=== PATIENT | male | born 1970 | race Two or more races ===

== ENCOUNTER → 2020-02-03 09:54 | Outpatient (BNVA) | payer OTHER, SELFPAY | PROVIDERS: Visit Provider Internal Medicine ==

== ENCOUNTER 2021-02-25 10:15 | Outpatient (REF) | payer OTHER, SELFPAY ==
[2021-02-25 11:52] LABS: MANUAL DIFF FLAG NO
[2021-02-25 12:10] LABS: Basophils Percent Auto 0.5 % (0-2); Eosinophils Absolute Auto 0.1 X10*3/uL (0.0-0.4); Eosinophils Percent Auto 0.8 % (0-4); Hematocrit 43.4 % (42.0-52.0); Hemoglobin 14.2 g/dl (14.0-18.0); Imm Gran Abs Auto 0.01 X10*3/uL (0.00-0.03); Imm Gran Pct Auto 0.2 % (0.0-0.4); Lymphocytes Absolute Auto 2.6 X10*3/uL (1.2-4.9); Lymphocytes Percent Auto 39.7 % (20-40); Mean Corpuscular HGB Conc 32.7 g/dl (31.0-36.0); Mean Corpuscular Hemoglobin 31.7 pg (27.0-33.0); Mean Corpuscular Volume 96.9 fL (80.0-98.0); Mean Platelet Volume 9.9 fL (9.4-12.4); Monocytes Absolute Auto 0.5 X10*3/uL (0.1-1.2); Monocytes Percent Auto 6.8 % (2-11); Neutrophils Absolute Auto 3.43 x10*3/uL (2.0-8.3); Platelet Count 195 X10*3/uL (160-400); Red Blood Count 4.48 X10*6/uL (4.60-5.80); Red Cell Distribution Width 12.8 % (11.0-16.0); White Blood Count 6.6 X10*3/uL (4.8-10.8)
[2021-02-25 12:37] LABS: Alanine Aminotransferase 21 U/L (0-40); Albumin Level 4.3 g/dL (3.5-5.0); Alkaline Phosphatase 55 U/L (39-117); Anion Gap 12 (12-20); Aspartate Amino Transferase 21 U/L (5-37); Bilirubin Direct < 0.2 mg/dL (0.0-0.5); Bilirubin Total 0.3 mg/dL (0.0-1.0); Blood Urea Nitrogen 20 mg/dL (9-16); Calcium 9.1 mg/dL (8.4-10.2); Carbon Dioxide 28 mmol/L (22-29); Chloride 106 mmol/L (96-108); Estimated Glomerular Filt Rate > 60; Glucose Random 94 mg/dL (60-115); Potassium 4.2 mmol/L (3.3-5.1); Sodium 142 mmol/L (135-145); Total Protein 7.6 g/dL (6.5-8.0)
[2021-02-25 12:49] LABS: Microalbumin Urine < 5.0 mg/L
[2021-02-25 12:52] LABS: ~HepC Num1 0.11 S/CO (0.00-0.79); ~Hepatitis C Antibody Nonreactive (Nonreactive)
[2021-02-25 13:47] LABS: Syphilis Screen Nonreactive (Nonreactive)
[2021-02-26 14:16] LABS: Absolute CD3 Count 2173 cells/uL (840-3060); Absolute CD4 Count 1091 cells/uL (490-1740); Absolute CD8 Count 1207 cells/uL (180-1170); Absolute Lymphocytes 2695 cells/uL (850-3900); Percent CD3 Cells 81 % (57-85); Percent CD4 Cells 40 % (30-61); Percent CD8 Cells 45 % (12-42)
[2021-02-26 20:31] LABS: HIV RNA PCR Qn Copies <20 NOT DETECTED copies/mL (NOT DETECTED); HIV RNA PCR Qn Log Copies <1.30 NOT DETECTED (NOT DETECTED)
[2021-03-02 13:26] LABS: Vitamin D 25-OH, D2 <4 ng/mL; Vitamin D 25-OH, D3 23 ng/mL; Vitamin D 25-OH, Total 23 ng/mL (30-100)
== END 2021-02-25 10:16 | disposition home or self-care (01) ==
LOC: HO.LAB 10:15
PROVIDERS: Visit Provider Internal Medicine
DX: B20 Human immunodeficiency virus [HIV] disease (principal); R10.13 Epigastric pain; E55.9 Vitamin D deficiency, unspecified
CPT/HCPCS: 36415; 80048; 80076; 82043; 82306; 85025; 86359; 86360; 86780; 86803; 87536

== ENCOUNTER 2021-03-29 14:23 | Outpatient (REF) | payer OTHER, SELFPAY ==
--- NOTE | ~2021-03-29 | MM_ITS ---
EXAMINATION: BONE DENSITOMETRY CLINICAL INDICATION: Vitamin D deficiency, unspecified. COMPARISON: None (current study represents initial baseline exam). TECHNIQUE: Using a [employer] DXA System (software version: 13.1) manufactured by [employer], dual-energy x-ray absorptiometry was performed of the lumbar spine and left hip. The images are of good technical quality. Summary results are attached. FINDINGS: AP SPINE L1-L4: BMD 1.228 g/cm2, Z-score -0.5, T-score 0.1, normal. LEFT FEMUR, NECK: BMD 1.075 g/cm2, Z-score 0.2, T-score 0.0, normal. LEFT FEMUR, TOTAL: BMD 1.201 g/cm2, Z-score 0.6, T-score 0.7, normal. IDENTIFIED RISK FACTORS: Height loss. HISTORY OF FRACTURE: None listed. MEDICATIONS: None listed. MM/XR DEXA axial skeleton IMPRESSION: 1. DIAGNOSIS: Normal bone density based on the lowest T-score value of 0.0 in the femoral neck applying World Health Organization criteria. 2. 10-YEAR FRACTURE RISK PREDICTION, FRAX: Major osteoporotic fracture (clinical spine, forearm, hip or shoulder) 1.6%. Hip fracture 0.0%. 3. Treatment Recommendations: NOF guidelines recommend consideration for treatment in postmenopausal women and men age 50 and older presenting with the following: -A hip or vertebral (clinical or morphometric) fracture. -T-score less than or equal to -2.5 at the femoral neck or spine after appropriate evaluation to exclude secondary causes. -Low bone mass at the hip or spine and a 10-year fracture probability by FRAX of greater than or equal to 3% for hip fracture or greater than or equal to 20% for major osteoporotic fracture based on the [place] adapted WHO algorithm. 4. Other Recommendations: All treatment decisions require clinical judgment and consideration of individual patient factors, including patient preferences, comorbidities, previous drug use, risk factors not captured in the FRAX model (e.g. frailty, falls, vitamin D deficiency, increased bone turnover, interval significant decline in bone density) and possible under or overestimation of fracture risk by FRAX. FUTURE SCAN RECOMMENDATION: People with diagnosed cases of osteoporosis or at high risk for fracture should have regular bone mineral density tests. For patients eligible for Medicare, routine testing is allowed once every 2 years. The testing frequency can be increased to one year for patients who have rapidly progressing disease, those who are receiving or discontinuing medical therapy to restore bone mass, or have additional risk factors.
== END 2021-03-29 14:24 | disposition home or self-care (01) ==
LOC: HO.MAMMO 14:23
PROVIDERS: Visit Provider Internal Medicine
DX: Z13.820 Encounter for screening for osteoporosis (principal); E55.9 Vitamin D deficiency, unspecified
CPT/HCPCS: 77080

== ENCOUNTER 2022-02-17 13:38 | Outpatient (REF) | payer OTHER, SELFPAY ==
[2022-02-19 12:33] LABS: Absolute CD3 Count 2077 cells/uL (840-3060); Absolute CD4 Count 994 cells/uL (490-1740); Absolute CD8 Count 1177 cells/uL (180-1170); Absolute Lymphocytes 2543 cells/uL (850-3900); CD4 CD8 Ratio 0.84 (0.86-5.00); Percent CD3 Cells 82 % (57-85); Percent CD4 Cells 39 % (30-61); Percent CD8 Cells 46 % (12-42)
[2022-02-20 19:52] LABS: HIV RNA PCR Qn Copies NOT DETECTED copies/mL (NOT DETECTED); HIV RNA PCR Qn Log Copies NOT DETECTED (NOT DETECTED)
== END 2022-02-17 13:39 | disposition home or self-care (01) ==
LOC: HO.LAB 13:38
PROVIDERS: Visit Provider Internal Medicine
DX: B20 Human immunodeficiency virus [HIV] disease (principal)
CPT/HCPCS: 36415; 86359; 86360; 87536

== ENCOUNTER 2023-03-02 10:50 | Outpatient (REF) | payer OTHER, SELFPAY ==
[2023-03-02 11:07] LABS: MANUAL DIFF FLAG NO
[2023-03-02 11:40] LABS: Basophils Percent Auto 0.6 % (0-2); Eosinophils Absolute Auto 0.1 X10*3/uL (0.0-0.4); Eosinophils Percent Auto 1.3 % (0-4); Hematocrit 45.3 % (42.0-52.0); Hemoglobin 14.8 g/dl (14.0-18.0); Imm Gran Abs Auto 0.02 X10*3/uL (0.00-0.03); Imm Gran Pct Auto 0.3 % (0.0-0.4); Lymphocytes Absolute Auto 3.3 X10*3/uL (1.2-4.9); Mean Corpuscular HGB Conc 32.7 g/dl (31.0-36.0); Mean Corpuscular Hemoglobin 31.3 pg (27.0-33.0); Mean Corpuscular Volume 95.8 fL (80.0-98.0); Mean Platelet Volume 9.7 fL (9.4-12.4); Monocytes Absolute Auto 0.5 X10*3/uL (0.1-1.2); Monocytes Percent Auto 6.7 % (2-11); Neutrophils Absolute Auto 3.1 x10*3/uL (2.0-8.3); Neutrophils Percent Auto 44.1 % (45-73); Platelet Count 203 X10*3/uL (160-400); Red Blood Count 4.73 X10*6/uL (4.60-5.80); Red Cell Distribution Width 12.5 % (11.0-16.0)
[2023-03-02 12:35] LABS: Alanine Aminotransferase 20 U/L (0-40); Alkaline Phosphatase 54 U/L (39-117); Anion Gap 11 (12-20); Aspartate Amino Transferase 20 U/L (5-37); Bilirubin Direct 0.1 mg/dL (0.0-0.5); Bilirubin Total 0.4 mg/dL (0.0-1.0); Blood Urea Nitrogen 21 mg/dL (9-16); Calcium 9.7 mg/dL (8.4-10.2); Carbon Dioxide 28 mmol/L (22-29); Chloride 106 mmol/L (96-108); Estimated Glomerular Filt Rate > 60; Glucose Random 90 mg/dL (60-115); Potassium 3.8 mmol/L (3.3-5.1); Sodium 141 mmol/L (135-145); Total Protein 7.5 g/dL (6.5-8.0)
[2023-03-03 05:38] LABS: Syphilis Screen Nonreactive (Nonreactive)
[2023-03-03 05:42] LABS: ~HepC Num1 0.13 S/CO (0.00-0.79); ~Hepatitis C Antibody Nonreactive (Nonreactive)
[2023-03-03 16:04] LABS: HIV RNA PCR Qn Copies NOT DETECTED copies/mL (NOT DETECTED); HIV RNA PCR Qn Log Copies NOT DETECTED (NOT DETECTED)
[2023-03-04 10:03] LABS: Absolute CD3 Count 2591 cells/uL (840-3060); Absolute CD4 Count 1387 cells/uL (490-1740); Absolute CD8 Count 1308 cells/uL (180-1170); Absolute Lymphocytes 3186 cells/uL (850-3900); CD4 CD8 Ratio 1.06 (0.86-5.00); Percent CD3 Cells 81 % (57-85); Percent CD4 Cells 44 % (30-61); Percent CD8 Cells 41 % (12-42)
== END 2023-03-02 10:51 | disposition home or self-care (01) ==
LOC: HO.LAB 10:50
PROVIDERS: Visit Provider Internal Medicine
DX: B20 Human immunodeficiency virus [HIV] disease (principal)
CPT/HCPCS: 36415; 80048; 80076; 85025; 86359; 86360; 86780; 86803; 87536

== ENCOUNTER 2023-03-11 13:29 | Outpatient (AMB) | payer OTHER, SELFPAY ==
--- NOTE | 2023-03-11 13:33 | MHC.OFFVIS ---
Intake Vital Signs 03/11/23 13:38 Height 6 ft 1 in Weight 235 lb BMI 31.0 Pulse 92 Pulse Source Pulse Oximeter Pulse Oximetry (%) 97 Intake Visit Reasons: HIV 1 year follow up labs Allergies No Known Allergies Allergy (Verified 03/11/23 13:41) HPI HIV 1 year follow up labs HPI Details He has CD4 count of 1387 and viral load undetectable on 03/02. He has now PCP at [facility]. He has no concerns. [facility] Medical History Hypovitaminosis D Epigastric pain HIV (human immunodeficiency virus infection) Family History Mother Diabetes Maternal Grandmother Diabetes Alcohol intake: current Patient Tobacco Use Status: Never used Tobacco Review of Systems Const All systems reviewed & are unremarkable except as noted in HPI and below Physical Exam Vital Signs: Last Vital Signs Pulse 92 03/11/23 13:38 Pulse Ox 97 03/11/23 13:38 BMI result Body Mass Index 31.0 Const General: cooperative Orientation/consciousness: patient oriented x3 HEENT Head: Yes normal to inspection Mouth: Normal oral and palatal mucosa present Eyes General: appearance normal, both eyes and all related structures Pupils: Equal, round and reactive pupils present Resp Effort & Inspection: normal respiratory effort Cardio Rate: regular rate Rhythm: regular rhythm GI Palpation (GI): Soft to palpation and nontender General: Yes no CVA tenderness Back/Spine/Pelvis Back: no CVA tenderness Skin General skin exam: no rashes or lesions noted Neuro General: patient oriented x3 Cranial nerves: Yes CN's II-XII intact bilaterally and Yes Equal, round and reactive pupils present Extrem General: Yes normal to inspection Psych Appearance: grossly normal Assessment & Plan Assessment & Plan (1) HIV (human immunodeficiency virus infection): Comment: He has had DVT. He has no complaints and is now seeing [facility] PCP. Code(s): B20 - Human immunodeficiency virus [HIV] disease Plan: Check CD4 count and viral load and see in one year. Medications: Refilled pftdvkz-zhs-lxokx-tenof alafen 132-148-134-10 mg (Genvoya) must administer with a meal/food 1 tab PO DAILY 30 tabs 11RF 30 days khnbuji-fks-ngamg-tenof alafen [phone] mg (Genvoya) must administer with a meal/food 1 tab PO DAILY 30 tabs 11RF 30 days hnxtqpp-kxo-cwbdg-tenof alafen 243-956-690-10 mg (Genvoya) must administer with a meal/food 1 tab PO DAILY 30 tabs 11RF 30 days Coding Level of Care Code Est Pt Level 3 (74237) Diagnoses HIV (human immunodeficiency virus infection) B20
[2023-03-11 13:38] VITALS: PULSE 92; O2SAT 97; BMI 31.0
== END 2023-03-11 14:24 | disposition home or self-care (01) ==
PROVIDERS: Visit Provider Internal Medicine
DX: B20 Human immunodeficiency virus [HIV] disease (principal)
CPT/HCPCS: 99213

== ENCOUNTER → 2023-03-11 13:29 | Outpatient (BNVA) | payer OTHER, SELFPAY | PROVIDERS: Visit Provider Internal Medicine ==

== ENCOUNTER 2024-03-03 15:31 | Outpatient (REF) | payer OTHER, SELFPAY ==
[2024-03-05 07:48] LABS: HIV RNA PCR Qn Copies NOT DETECTED copies/mL (NOT DETECTED); HIV RNA PCR Qn Log Copies NOT DETECTED (NOT DETECTED)
[2024-03-09 15:57] LABS: Absolute CD3 Count 2458 cells/uL (840-3060); Absolute CD4 Count 1185 cells/uL (490-1740); Absolute CD8 Count 1424 cells/uL (180-1170); Absolute Lymphocytes 3077 cells/uL (850-3900); CD4 CD8 Ratio 0.83 (0.86-5.00); Percent CD3 Cells 80 % (57-85); Percent CD4 Cells 39 % (30-61); Percent CD8 Cells 46 % (12-42)
== END 2024-03-03 15:32 | disposition home or self-care (01) ==
LOC: HO.LAB 15:31
PROVIDERS: Visit Provider Internal Medicine
DX: B20 Human immunodeficiency virus [HIV] disease (principal)
CPT/HCPCS: 36415; 86359; 86360; 87536

== ENCOUNTER 2024-03-09 15:38 | Outpatient (AMB) | payer OTHER, SELFPAY ==
[2024-03-09 15:41] VITALS: PULSE 109; O2SAT 99; BMI 31.3
--- NOTE | 2024-03-09 15:41 | A.OFFVIS_ITS ---
Vital Signs 03/09/24 15:41 Height 6 ft 1 in Weight 237 lb BMI 31.3 Pulse 109 H Pulse Oximetry (%) 99 Oxygen Delivery Method Room Air Intake Visit Reasons: f/u, 1 yr HIV Allergies No Known Allergies Allergy (Verified 03/09/24 15:42) HPI HPI f/u, 1 yr HIV: Details: He has no complaints. He has been on Genvoya and doesnt want to change. On 03/03 viral load undetectable and CD4 count pending. [facility] Medical History Hypovitaminosis D Epigastric pain HIV (human immunodeficiency virus infection) Family History Mother Diabetes Maternal Grandmother Diabetes Social History Alcohol intake: current Patient Tobacco Use Status: Never used Tobacco Review of Systems Const All systems reviewed & are unremarkable except as noted in HPI and below Physical Exam Vital Signs: Last Vital Signs Pulse 109 H 03/09/24 15:41 Pulse Ox 99 03/09/24 15:41 Oxygen Delivery Method Room Air 03/09/24 15:41 BMI result Body Mass Index 31.3 Const General: cooperative Orientation/consciousness: patient oriented x3 HEENT Head: Yes normal to inspection Mouth: Normal oral and palatal mucosa present Eyes General: appearance normal, both eyes and all related structures Pupils: Equal, round and reactive pupils present Resp Effort & Inspection: normal respiratory effort Cardio Rate: regular rate Rhythm: regular rhythm GI Palpation (GI): Soft to palpation and nontender General: Yes no CVA tenderness Back/Spine/Pelvis Back: no CVA tenderness Skin General skin exam: no rashes or lesions noted Neuro General: patient oriented x3 Cranial nerves: Yes CN's II-XII intact bilaterally and Yes Equal, round and reactive pupils present Extrem General: Yes normal to inspection Psych Appearance: grossly normal Assessment & Plan Assessment & Plan (1) HIV (human immunodeficiency virus infection): Comment: He has been doing well. He has CD4 count 1185 and viral load undetectable. Would continue Genvoya. Check CD4 count and viral load in six months. Consider statin as HIV is independent risk factor for CAD. Check cholesterol. He will consider rectal Pap in future. Code(s): B20 - Human immunodeficiency virus [HIV] disease Category: Medical Plan: n/a Orders: Orders HIV-1 RNA QN PCR Expanded 6 Months B20 - Human immunodeficiency virus [HIV] disease Medications: Refilled eeajckp-uug-jdphp-tenof alafen [phone] mg (Genvoya) must administer with a meal/food 1 tab PO DAILY 30 tabs 5RF 30 days xnoldvo-aaj-hjgny-tenof alafen [phone] mg (Genvoya) must administer with a meal/food 1 tab PO DAILY 30 tabs 5RF 30 days Coding Level of Care Code Est Pt Level 4 (28925) Diagnoses HIV (human immunodeficiency virus infection) B20
== END 2024-03-09 16:20 | disposition home or self-care (01) ==
LOC: HO.HID 15:38
PROVIDERS: Visit Provider Internal Medicine
DX: B20 Human immunodeficiency virus [HIV] disease (principal)
CPT/HCPCS: 99214

== ENCOUNTER → 2024-03-09 15:38 | Outpatient (BNVA) | payer OTHER, SELFPAY | PROVIDERS: Visit Provider Internal Medicine ==

== ENCOUNTER 2024-08-04 14:38 | Outpatient (REF) | payer OTHER, SELFPAY ==
--- OUTSIDE RECORDS SUMMARY | 2024-08-04 17:18 | XMS_ITS | Data Portability ---
Author Organization [facility], Main Office Address [address] [facility] [address] [place] [id number] Care Team Providers Care Sign Fabricator Name Role Phone EDUARDA MADRIGAL Primary Care Provider [facility] Production Supervisor Off Shift [phone] [facility] INFECTIOUS DISEASE Infectious Disease Assessment No assessment recorded. Plan of Treatment Reminders Order Date Submit Date Provider Last Modified By Organization Details Last Modified Time Details Appointments PE EST 2024 01:30P Anne Marie MADRIGAL MD Not available Not available Not available Lab lipid panel, serum 2023 024 [email or web address] [facility], [address], [place], [address], 12/29/2023 10:24:38 BMP, serum or plasma 2023 024 [facility], [address], [place], [address], 07/20/2023 10:29:16 CBC w/ auto diff 2023 024 [facility], [address], [place], [address], 07/20/2023 10:29:16 TSH, serum or plasma 2023 024 [facility], [address], [place], [address], 07/20/2023 10:29:16 lipid panel, serum 2022 023 [email or web address] [facility], [address], [address], [place], [address], 01/06/2023 14:06:04 hepati tis C virus Ab, serum 2022 023 SPENSER [facility], [address], [address], [place], [address], 05/28/2022 09:51:14 lipid panel, serum 2022 023 [facility], [address], [address], [place], [address], 05/27/2022 17:45:53 BMP, serum or plasma 2022 023 [facility], [address], [facility] [address], [place], [address], 05/27/2022 17:45:51 CBC w/ auto diff 2022 023 [facility], [address], [facility] [address], [place], [address], 05/27/2022 16:22:27 TSH, serum or plasma 2022 023 [facility], [address], [address], [place], [address], 05/27/2022 17:55:42 Referral vascul zenon cooley referr al - was diagno sed in 2022, clot his improv ement, pt just wants some guidan ce [address] [facility] [place], [address] [facility], [facility] [address], [place], [address], 07/27/2023 08:19:14 Procedures colono scopy screen ing (PROC) 2023 024 Not available 07/20/2023 10:37:26 colono scopy screen ing (PROC) 2022 023 [email or web address] Not available 11/11/2022 10:25:41 Surgeries None record ed. Imaging US, duplex , venous , lower extrem ity, unilat eral - hx of DVT on the right side, pt would like to ensure to ensure cloth dissol jt 2022 023 [facility] (Ultrasound), [address] [place] [address], [address], 07/29/2022 19:02:39 Medication Orders Eliqui s 2.5 mg tablet 2022 023 [facility], [address] [place], [address], 07/29/2022 15:43:35 Eliqui s 2.5 mg tablet 2022 023 [facility], [address] [place] [address], [address], 05/01/2022 11:51:15 Patient TargetsNo targets recorded. Patient Instructions Encounter Date Encounter Id Patient Instructions Last Modified By Organization Details Last Modified Time 05/01/2022 [id number] Colon Cancer Screening A Not available 05/01/2022 10:04:37 07/20/2023 [id number] Colon Cancer Screening A Not available 07/20/2023 10:29:16 medical record request* [email or web address] Not available 07/20/2023 11:44:19 Reason for Referral Vascular Surgeon Referral fo r Deep venous thrombosis of lower extremity was diagnosed in 2022, clot his improvement, pt just wants some guidance Referring Physician: Eduarda Madrigal, Family Medicine, Encounter Date: 07/20/2023 Results Created Date Observation Date Name Description Value Unit Range Abnormal Flag Note LastModifiedBy Organization Detail LastModifiedTime 05/27/19 23 05/27/2022 COMPL ETE CBC WITH DIFF WBC 7.6 K/mm3 (4.0-1 1.0) Not Available [facility] (Centralized Electronic Ordering - All Locations) Patient Can Go To The Location Of Their Choice, 05/27/2022 16:22:27 05/27/19 23 05/27/2022 COMPL ETE CBC WITH DIFF RBC 4.47 M/mm3 (4.70- 6.10) low Not Available [facility] (Centralized Electronic Ordering - All Locations) Patient Can Go To The Location Of Their Choice, 05/27/2022 16:22:27 05/27/19 23 05/27/2022 COMPL ETE CBC WITH DIFF HGB 14.1 gm/dL (13.7- 17.1) Not Available [facility] (Centralized Electronic Ordering - All Locations) Patient Can Go To The Location Of Their Choice, 05/27/2022 16:22:05/27/19 23 05/27/2022 COMPL ETE CBC WITH DIFF HCT 43.1 % (40.5- 50.0) Not Available [facility] (Centralized Electronic Ordering - All Locations) Patient Can Go To The Location Of Their Choice, 05/27/2022 16:22:27 05/27/19 23 05/27/2022 COMPL ETE CBC WITH DIFF MCV 96.4 fL (80.0- 94.0) high Not Available [facility] (Centralized Electronic Ordering - All Locations) Patient Can Go To The Location Of Their Choice, 05/27/2022 16:22:27 05/27/19 23 05/27/2022 COMPL ETE CBC WITH DIFF MCH 31.5 pg (27.0- 34.0) Not Available [facility] (Centralized Electronic Ordering - All Locations) Patient Can Go To The Location Of Their Choice, 05/27/2022 16:22:27 05/27/19 23 05/27/2022 COMPL ETE CBC WITH DIFF MCHC 32.7 g/dL (33.0- 37.0) low Not Available [facility] (Centralized Electronic Ordering - All Locations) Patient Can Go To The Location Of Their Choice, 05/27/2022 16:22:27 05/27/19 23 05/27/2022 COMPL ETE CBC WITH DIFF plt 207 K/mm3 (150-4 60) Not Available [facility] (Centralized Electronic Ordering - All Locations) Patient Can Go To The Location Of Their Choice, 05/27/2022 16:22:05/27/19 23 05/27/2022 COMPL ETE CBC WITH DIFF RDW-SD 48.4 fL (<47.0 ) high Not Available [facility] (Centralized Electronic Ordering - All Locations) Patient Can Go To The Location Of Their Choice, 05/27/2022 16:22:05/27/19 23 05/27/2022 COMPL ETE CBC WITH DIFF MPV 10.1 fL (9.4-1 2.4) Not Available [facility] (Centralized Electronic Ordering - All Locations) Patient Can Go To The Location Of Their Choice, 05/27/2022 16:22:05/27/19 23 05/27/2022 COMPL ETE CBC WITH DIFF automated NRBC 0.0 #/100 _WBC' s Not Available [facility] (Centralized Electronic Ordering - All Locations) Patient Can Go To The Location Of Their Choice, 05/27/2022 16:22:05/27/19 23 05/27/2022 COMPL ETE CBC WITH DIFF abs. NRBC 0.0 K/mm3 Not Available [facility] (Centralized Electronic Ordering - All Locations) Patient Can Go To The Location Of Their Choice, 05/27/2022 16:22:05/27/19 23 05/27/2022 COMPL ETE CBC WITH DIFF neut # 4.1 K/mm3 (1.3-7 .0) Not Available [facility] (Centralized Electronic Ordering - All Locations) Patient Can Go To The Location Of Their Choice, 05/27/2022 16:22:05/27/19 23 05/27/2022 COMPL ETE CBC WITH DIFF lymph # 2.9 K/mm3 (0.8-3 .1) Not Available [facility] (Centralized Electronic Ordering - All Locations) Patient Can Go To The Location Of Their Choice, 05/27/2022 16:22:05/27/19 23 05/27/2022 COMPL ETE CBC WITH DIFF mono# 0.5 K/mm3 (0.4-1 .3) Not Available [facility] (Centralized Electronic Ordering - All Locations) Patient Can Go To The Location Of Their Choice, 05/27/2022 16:22:27 05/27/19 23 05/27/2022 COMPL ETE CBC WITH DIFF eo # 0.1 K/mm3 (0.0-0 .4) Not Available [facility] (Centralized Electronic Ordering - All Locations) Patient Can Go To The Location Of Their Choice, 05/27/2022 16:22:27 05/27/19 23 05/27/2022 COMPL ETE CBC WITH DIFF baso # 0.0 K/mm3 (0.0-0 .1) Not Available [facility] (Centralized Electronic Ordering - All Locations) Patient Can Go To The Location Of Their Choice, 05/27/2022 16:22:05/27/19 23 05/27/2022 COMPL ETE CBC WITH DIFF abs. imm gran 0.0 K/mm3 Not Available [facility] (Centralized Electronic Ordering - All Locations) Patient Can Go To The Location Of Their Choice, 05/27/2022 16:22:05/27/19 23 05/27/2022 COMPL ETE CBC WITH DIFF neut 53.4 % (44-76 ) Not Available [facility] (Centralized Electronic Ordering - All Locations) Patient Can Go To The Location Of Their Choice, 05/27/2022 16:22:05/27/19 23 05/27/2022 COMPL ETE CBC WITH DIFF lymph 38.2 % (15-43 ) Not Available [facility] (Centralized Electronic Ordering - All Locations) Patient Can Go To The Location Of Their Choice, 05/27/2022 16:22:05/27/19 23 05/27/2022 COMPL ETE CBC WITH DIFF monocyte 7.0 % (4.5-1 0.5) Not Available [facility] (Centralized Electronic Ordering - All Locations) Patient Can Go To The Location Of Their Choice, 05/27/2022 16:22:05/27/19 23 05/27/2022 COMPL ETE CBC WITH DIFF eo 0.8 % (0-6) Not Available [facility] (Centralized Electronic Ordering - All Locations) Patient Can Go To The Location Of Their Choice, 05/27/2022 16:22:27 05/27/19 23 05/27/2022 COMPL ETE CBC WITH DIFF baso 0.3 % (0-2) Not Available [facility] (Centralized Electronic Ordering - All Locations) Patient Can Go To The Location Of Their Choice, 05/27/2022 16:22:27 05/27/1905/27/2022 COMPL ETE CBC WITH DIFF imm gran 0.3 % Not Available [facility] (Centralized Electronic Ordering - All Locations) Patient Can Go To The Location Of Their Choice, 05/27/2022 16:22:27 05/27/1905/27/2022 BASIC METAB OLIC PANEL glucose 102 mg/dL (70-99 ) high Not Available [facility] (Centralized Electronic Ordering - All Locations) Patient Can Go To The Location Of Their Choice, 05/27/2022 17:45:51 05/27/1905/27/2022 BASIC METAB OLIC PANEL BUN 26 mg/dL (6-20) high Not Available [facility] (Centralized Electronic Ordering - All Locations) Patient Can Go To The Location Of Their Choice, 05/27/2022 17:45:51 05/27/1905/27/2022 BASIC METAB OLIC PANEL creatinine 1.2 mg/dL (0.7-1 .2) Not Available [facility] (Centralized Electronic Ordering - All Locations) Patient Can Go To The Location Of Their Choice, 05/27/2022 17:45:51 05/27/1905/27/2022 BASIC METAB OLIC PANEL sodium 141 mmol/ L (133-1 45) Not Available [facility] (Centralized Electronic Ordering - All Locations) Patient Can Go To The Location Of Their Choice, 05/27/2022 17:45:51 05/27/1905/27/2022 BASIC METAB OLIC PANEL potassium 4.4 mmol/ L (3.6-5 .2) Not Available [facility] (Centralized Electronic Ordering - All Locations) Patient Can Go To The Location Of Their Choice, 05/27/2022 17:45:51 05/27/1905/27/2022 BASIC METAB OLIC PANEL chloride 105 mmol/ L (98-10 7) Not Available [facility] (Centralized Electronic Ordering - All Locations) Patient Can Go To The Location Of Their Choice, 05/27/2022 17:45:51 05/27/1905/27/2022 BASIC METAB OLIC PANEL bicarbonate 27 mmol/ L (22-29 ) Not Available [facility] (Centralized Electronic Ordering - All Locations) Patient Can Go To The Location Of Their Choice, 05/27/2022 17:45:51 05/27/1905/27/2022 BASIC METAB OLIC PANEL anion gap 9 (4-17) Not Available [facility] (Centralized Electronic Ordering - All Locations) Patient Can Go To The Location Of Their Choice, 05/27/2022 17:45:51 05/27/1905/27/2022 BASIC METAB OLIC PANEL calcium 9.4 mg/dL (8.6-1 0.5) Not Available [facility] (Centralized Electronic Ordering - All Locations) Patient Can Go To The Location Of Their Choice, 05/27/2022 17:45:51 05/27/1905/27/2022 BASIC METAB OLIC PANEL estimated GFR creatinine 71 mL/mi n/1.7 3_M2 Creat inine based estim ated glome rular filtr ation (eGFR ) in adult s is calcu lated using the Natio nal Kidne y Found ation recom vesta d 2020 CKD-E PI equat ion. Estim ates GFR from serum creat inine , age and sex. Not Available [facility] (Centralized Electronic Ordering - All Locations) Patient Can Go To The Location Of Their Choice, 05/27/2022 17:45:51 05/27/1905/27/2022 LIPID PANEL cholesterol, total 176 mg/dL (<200) Not Available [facility] (Centralized Electronic Ordering - All Locations) Patient Can Go To The Location Of Their Choice, 05/27/2022 17:45:53 05/27/1905/27/2022 LIPID PANEL triglyceride 509 mg/dL (<150) high Not Available [facility] (Centralized [facility] Ordering - All Locations) Patient Can Go To The Location Of Their Choice, 05/27/2022 17:45:53 05/27/1905/27/2022 LIPID PANEL HDL chol 38 mg/dL (>39) low Not Available [facility] (Centralized Electronic Ordering - All Locations) Patient Can Go To The Location Of Their Choice, 05/27/2022 17:45:53 05/27/19 23 05/27/2022 LIPID PANEL LDL cholesterol, calculated 36 mg/dL (0-130 ) Not Available [facility] (Centralized Electronic Ordering - All Locations) Patient Can Go To The Location Of Their Choice, 05/27/2022 17:45:53 05/27/19 23 05/27/2022 LIPID PANEL non HDL cholesterol (calc) 138 mg/dL (<160) Not Available [facility] (Centralized Electronic Ordering - All Locations) Patient Can Go To The Location Of Their Choice, 05/27/2022 17:45:53 05/27/19 23 05/27/2022 TSH WITH REFLE X TO FT4 TSH 1.93 uIU/m L (0.4-4 .2) Not Available [facility] (Centralized Electronic Ordering - All Locations) Patient Can Go To The Location Of Their Choice, 05/27/2022 17:55:42 05/27/19 23 05/28/2022 ANTI- HEPAT ITIS C anti-hepatit is C (neg) normal NEGAT ALANIS Refer ence range : Negat alanis This test was perfo rmed on the Abbot t Archi tect immun oassa y syste m. Not Available [facility] (Centralized Electronic Ordering - All Locations) Patient Can Go To The Location Of Their Choice, 05/28/2022 09:51:14 07/30/19 23 07/29/2022 US, duple x, venou s, lower extre mity, unila teral No observ ation record ed. [facility] [address] [address], [place], [address], 07/30/2022 08:16:38 08/06/19 23 08/05/2022 US, duple x, venou s, lower extre mity, unila teral US Dopple r Ext Lower Venous Right Reason : R22.43 ; Clinic al Questi on(s): Other: Follow -up known deep venous thromb osis. Patishanda t is on blood thinne rs. COMPAR MED: Right lower extrem ity Dopple r 2021. RALPH Brush TECHNI QUE: Ultras ound of the veins from the groin throug h the calf was perfor med using graysc cookie, color, and spectr al Dopple r ultras ound assess ing for comple te compre ssibil ity and normal flow charac terist ics. FINDIN GS: Common femora l vein: Patent . No thromb osis. Femora l vein: Nonocc lusive thromb us throug hout the femora l vein, with interv al develo pment of a promin ent adjace nt collat eral vein, which is widely patent withou t fillin g defect . Poplit eal vein: Patent . No thromb osis. Gastro cnemiu s veins: The visual ized portio ns are patent withou t eviden ce of thromb osis. Previo usly seen thromb osis resolv ed. Perone al veins: Nonocc lusive thromb us within one of the perone al veins at the trunk, with patent second perone al vein, previo usly both occlud ed. Both perone al veins are patent more inferi ananda in the calf. Cardiology Coordinator ior tibial veins: The visual ized portio ns are patent withou t eviden ce of thromb osis. Contra latera l common femora l vein: Patent . No thromb osis. OTHER FINDIN GS: None. IMPRES HALIMA: Chroni c thromb us extend ing along the length of the right femora l vein to the poplit eal vein and one of the perone al trunks , now nonocc lusive and slight ly decrea sed in extent from the study of 2021, with interv al develo pment of widely patent femora l collat eral vein. WSN: [id number] Orderi ng Physic alix: Carlos Cortez ie Dictat ed By: Lor Eckert MD Dictat ed Date/T jesús: 10:59 a Review ed By: Lor Eckert MD Signed By: Lor Eckert MD Signed Date/T jesús: 10:59 am Transc ribed By: PATRIC Transc ribed Date/T jesús: 10:52 am Patien t Class: Outpat ient [facility] ([facility]) [address], [place], [address], 08/07/2022 13:09:18 07/27/19 24 07/24/2023 US, duple x, venou s, lower extre mity, unila teral No observ ation record ed. [place] [address] [facility] [address], [place], [address], 07/27/2023 12:02:29 10/23/19 24 10/22/2023 US, duple x, venou s, lower extre mity No observ ation record ed. [address] [facility] [address], [place], [address], 10/24/2023 08:59:08 Result Notes None recorded. Problems Name Problem SNOMED Code Status Onset Date Resolution Date Notes Provider Name and Address Organization Details Recorded Time Deep venous thrombosis of lower extremity 683730655 Active 2022 occured in 02/2022 EDUARDA MADRIGAL MD [address], [place], [address], [facility] 3 09:46:30 Human immunodefi ciency virus infection 52593192 Active 2022 follows with ID (levels undetectab le for 12 years) EDUARDA MADRIGAL MD [address], [place], [address], [facility] 3 11:11:02 Obesity 442307876 Active 2022 Rahel de leon, [facility] 3 11:34:06 Problem Notes None recorded. Procedures Surgical History None recorded. Imaging Results Imaging Date Name Status LastModified by [facility] Details LastModified Time 07/29/2022 US, duplex, venous, lower extremity, unilateral completed [address], [place], [address], 07/30/2022 08:16:38 08/05/2022 US, duplex, venous, lower extremity, unilateral completed [facility] ([facility]) [address], [place], [address], 08/07/2022 13:09:18 07/24/2023 US, duplex, venous, lower extremity, unilateral completed [facility] [address] [facility] [address], [place], [address], 07/27/2023 12:02:29 10/22/2023 US, duplex, venous, lower extremity completed [facility] [address] [facility] [address], [place], [address], 10/24/2023 08:59:08 Procedure Notes None recorded. Medical Equipment None Reported. Allergies No known drug allergies Medications Name Sig Start Date Stop Date Status Note LastModified by Organization Details LastModified Time Eliquis 2.5 mg tablet TAKE 1 TABLET BY MOUTH TWO TIMES A DAY 025 active Not Available Not Available Not Avai lable Genvoya 150 mg-150 mg-200 mg-10 mg tablet TAKE 1 TABLET BY MOUTH EVERY DAY WITH A MEAL OR FOOD active Not Available Not Available No t Available Vitals Date Recorded Body height Body mass index (BMI) Body weight Heart rate Oxygen saturation Oxygen saturation in Arterial blood by Pulse oximetry Body temperature Systolic blood pressure Diastolic blood pressure Provider Name and Address Organization Details Last Updated DateTime 3 185.42 cm 33 kg/m2 502453. 09 g 75 /min 99 % 99 % 98.2 [degF] 135 mm[Hg] 79 mm[Hg] Kimberli Asif MA [facility] 3 09:38:16 Date Recorded Body height Body mass index (BMI) Body weight Heart rate Oxygen saturation Oxygen saturation in Arterial blood by Pulse oximetry Body temperature Systolic blood pressure Diastolic blood pressure Provider Name and Address Organization Details Last Updated DateTime 3 185.42 cm 30.3 kg/m2 040687. 25 g 95 /min 96 % 96 % 98.1 [degF] 122 mm[Hg] 69 mm[Hg] Fortunato Bass MA [facility] 3 11:33:08 Date Recorded Body height Body mass index (BMI) Body weight Oxygen saturation Oxygen saturation in Arterial blood by Pulse oximetry Heart rate Body temperature Systolic blood pressure Diastolic blood pressure Provider Name and Address Organization Details Last Updated DateTime 4 185.42 cm 30.7 kg/m2 550778. 53 g 97 % 97 % 82 /min 97.8 [degF] 116 mm[Hg] 75 mm[Hg] Shanna May MA [facility] 4 10:11:27 Social History Question Answer Notes LastModified by Organizat ion Details LastModified Time Tobacco Smoking Status Never Smoker EDUARDA MADRIGAL MD [address] [facility] [address], [place], [address], [facility] 05/01/2022 09:50:58 Do You Have An Advance Directive? No Information not available 05/01/2022 What Is Your Level Of Alcohol Consumption? Occasional Information not available 05/01/2022 Is Blood Transfusion Acceptable In An Emergency? Yes Information not available 05/01/2022 Are You Currently Employed? Yes Information not available 05/01/2022 What Type Of Diet Are You Following? REGULAR Information not available 05/01/2022 Which Illicit Or Recreational Drugs Have You Used? [place] Information not available 05/01/2022 Do You Or Have You Ever Used E-cigarettes Or Vape? Current User Of Electronic Cigarettes Information not available 05/01/2022 What Is Your Occupation? [facility] [employer] Information not available 05/01/2022 Do You Take Precautions To Prevent Distracted Driving? Yes Information not available 05/01/2022 How Often Do You Need To Have Someone Help You When You Read Instructions, Pamphlets, Or Other Written Material From Your Doctor Or Pharmacy? Never Information not available 05/01/2022 Have You Served In The ? No [email or web address] Information not available 07/20/2023 Are You Sexually Active? No Uses Protection Information not available 05/01/2022 Are You Passively Exposed To Smoke? No Information not available 05/01/2022 Do You Or Have You Ever Used Smokeless Tobacco? Never Used Smokeless Tobacco Information not available 05/01/2022 Do You Use Any Illicit Or Recreational Drugs? Yes Information not available 05/01/2022 Do You Or Have You Ever Used Any Other Forms Of Tobacco Or Nicotine? Yes Information not available 05/01/2022 How Many Years Have You Used E-cigarettes Or Vape? 1 Occasional Information not available 05/01/2022 Sex: Unknown Functional Status Question Answer Note LastModified by Organization D etails LastModified Time Are you able to walk? YESWOREST Information not available 05/01/2022 What is your exercise level? Moderate Information not available 05/01/2022 Mental Status None recorded. Family History Relationship Description Onset Age of this Age Resolved Age Notes LastModified by Organization Details LastModified Time Father Carcinoma of prostate Not available 05/01 09:47:23 Father Deep venous thrombosis Not available 08/2022 09:47:30 Medical History No medical history recorded. Immunizations Vaccine Type Date Status Note Provider Nam e and Address Organization Details Recorded Time Influenza, split virus, quadrivalent, PF 02/03/2017 completed JONAH Santiago [facility] 05/01/2022 09:30:33 Influenza, split virus, quadrivalent, PF 02/13/2020 completed JONAH Santiago [facility] 05/01/2022 09:30:33 COVID-19, mRNA, LNP-S, PF, 100 mcg/0.5mL dose or 50 mcg/0.25mL dose 05/28/2020 completed JONAH Santiago [facility] 05/01/2022 09:30:33 COVID-19, mRNA, LNP-S, PF, 100 mcg/0.5mL dose or 50 mcg/0.25mL dose 04/17/2021 completed JONAH Santiago [facility] 05/01/2022 09:30:33 Influenza, split virus, quadrivalent, PF 02/08/2021 completed JONAH Santiago, [facility] 05/01/2022 09:30:33 COVID-19, mRNA, LNP-S, PF, 100 mcg/0.5mL dose or 50 mcg/0.25mL dose 04/30/2020 completed JONAH Santiago, [facility] 05/01/2022 09:30:33 Influenza, split virus, quadrivalent, PF 01/26/2023 completed JONAH Rose, [facility] 07/20/2023 10:11:45 Past Encounters Encounter ID Performer Location Encounter Start Date Encounter Closed Date Diagnosis/Indication Diagnosis SNOMED-CT Code Diagnosis ICD10 Code Diagnosis Note [id number] Rahel N[place] Main Office [address] [facility] [address] [facility] [place] [phone] 05/01/2022 09:15:29 05/01/2022 10:11:53 Adult health examination 850956675 Z00.00 Health Maintenanc e Kiah) Patient was counseled on healthy diet, exercise and nutrition due to BMI 33. B) Screening: Last PSADate: Result: ???Next: after discussion would like to hold on this Last Colonoscop y: start at age 45-65Date: Result: Next: not yet done, ordered C) Vaccines:I nfluenza: 01/2022TdA P: DUEZoster: due at 64BRY67: due at 62DULZ36: due at 17KPJ19:PC V15:COVID: 04/30/2020 , 05/28/2020 , 04/17/2021 D) Routine blood work orderedE) Updated patient's history RTC in one year for annual exam or sooner if any acute complaints Patient ne w to provider [id number] Z76.89 - pt did not have any previous records- all history obtained by patient Fatigue 82765522 R53.83 Z00.00 Hyperlipidemia 57279842 E78.5 Z00.00 Hepatitis C screening 41 7927288 Z11.59 Screening for malignant neoplasm of colon 985045450 Z12.11 - pt is due for a colonoscop y, ordered Deep venou s thrombosis of lower extremity 566919210 I82.409 - pt was only on medication for one month and has ran out since- will need to continue on eliquis for 3 more months- there is still some swelling on the right leg- sounded like a provoked attack as pt was diagnosed with DVT after an [address] ride Administra tion of diphtheria, pertussis, and tetanus vaccine 637040610 Z23 - pt is due for vaccinatio n Body mass index 30+ - obesity 125322312 Z68.33 - Cut down on (limit) fast foods, sweets, and processed snack foods. - Limit alcohol intake to no more than 1- 2 drinks a day for men. One drink equals 12 oz of beer, 5 oz of wine, or 1 oz of hard liquor. - Keep a weight loss journal and keep track of the food and portions that you eat. - The exercise that you do- 4 times a week or 150 minutes cumulative of moderate exercise recommende d. Elevated blood-pressure reading without diagnosis of hypertension 096060493 R03.0 - BP today is 135/95- will await second visit for diagnosis of HTN, pt will need to 2 elevated levels Human immunodeficiency virus infection 28674608 B20 - level has remained undetectab le for 12 years- currently on Genoya given by patient's ID specialist Obesity 436328735 E66.9 [id number] EDUARDA MADRIGAL MD Main Office [address] [facility] [address] [place] [address] 07/29/2022 11:14:19 07/29/2022 11:53:30 Deep venous thrombosis of lower extremity 840663494 I82.409 - pt has almost completed his 3 month treatment of Eliquis, however he is afraid to stop has he is right leg is still swollen- to help reassure patient, ordered an ultrasound doppler of the right leg to see if cloth dissolved- will continue eliquis at this time> if U/S negative, will stop medication and perform vascular studies. pt no longer needs to be on Eliquis has it was a provoked DVT (developed after a long car ride) Elevated blood-pressure reading without diagnosis of hypertension 610349667 R03.0 - BP today is 122/69 under good control Hyperlipidemia 67983387 E78.5 Z00.00 - pt has elevated triglyceri hakan at 509- pt has undergo 3 months of lifestyle modificati ons: has been eating better and has lost weight (about 20 lbs)- ordered repeat lipid panel to check if the levels of triglyceri hakan has improved [id number] EDUARDA MADRIGAL MD Main Office [address] [facility] [place] [address] 07/20/2023 10:03:58 07/20/2023 10:30:22 Deep venous thrombosis of lower extremity 818053199 I82.409 - US doppler done on 08/05/22 still showed the cloth was present however was no longer occluding- c/w eliquis 2.5mg BID- pt would like to see a vascular surgeon more for reassuranc e as he continues to have intermitte nt leg swelling- discussed bleeding risks Hyperlipidemia 35689137 E78.5 Z00.00 - pt has elevated triglyceri hakan at 509- pt has undergo 3 months of lifestyle modificati ons: has been eating better and has lost weight (about 20 lbs)- ordered repeat lipid panel to check if the levels of triglyceri hakan has improved Adult [facility] th examination 731327207 Z00.00 Health Maintenanc e Kiah) Patient was counseled on healthy diet, exercise and nutrition due to BMI 30.7. B) Screening: Last PSADate: Result: ???Next: will start at 55 Last Colonoscop y: start at age 45-65Date: Result: Next: not yet done, ordered C) Vaccines:I nfluenza: 01/2023TdA P: DUE, orderedZos ter: orderedPCV 13: due at 54BLZL39: due at 08DCK11:PC V15:COVID: 04/30/2020 , 05/28/2020 , 04/17/2021 D) Routine blood work orderedE) Updated patient's history RTC in one year for annual exam or sooner if any acute complaints Obesity 420488505 E66.9 Body mass index 30+ - obesity 588922542 Z68.33 - Cut down on (limit) fast foods, sweets, and processed snack foods. - Limit alcohol intake to no more than 1- 2 drinks a day for men. One drink equals 12 oz of beer, 5 oz of wine, or 1 oz of hard liquor. - Keep a weight loss journal and keep track of the food and portions that you eat. - The exercise that you do- 4 times a week or 150 minutes cumulative of moderate exercise recommende d. Administra tion of diphtheria, pertussis, and tetanus vaccine 483640514 Z23 - pt is due for vaccinatio n Fatigue 42322373 R53.83 Z00.00 Human immunodeficiency virus infection 84338539 B20 - level has remained undetectab le for 12 years- currently on Genoya given by patient's ID specialist , will request records Screening for malignant neoplasm of colon 958540331 Z12.11 - pt is due for a colonoscop y, ordered Varicella vaccination 68 531318 Z23 Health Concerns Section Related Observation LastModified by Organization Detai ls LastModified Time None Recorded Concern Status LastModified by Organization Details LastModified Time None Recorded Advance Directives Directive N: Payers Encounter Date Sequence Insurance Name Policy Number Policy Diaz Covered Member ID Diaz Member ID Guarantor Name 05/01/2022 1 [facility] ([facility]) [id number] Estrada Mcqueen [id number] Estrada Mcqueen 07/29/2022 1 [facility] ([facility]) [id number] Estrada Mcqueen [id number] Estrada Mcqueen 07/20/[address] [place] [address] ([facility]) [id number] 9 Estrada Mcqueen [id number] Estrada Richar Notes Date Note Type Note Provider Name and Address Organization Details Recorded Time 3 text/html Estrada Mcqueen is a 52 year old M who presented to the clinic to establish care. Pt was not been seen by PCP for 10 years. Complaints: pt would like refills on this eliquis Is not using ASA.OTC/Herbal supplements use: none Sex hx: pt sexually active with his wifeSTI: hx of HIVDrug use: marijuana occasionallyEtoh use: occasionaltobacco use: uses e-cigarette's occasionallyspf/derm: Dental: has not been in several yearsEye: last yearDiet: regularActivity: cyclingsees HIV specnon detectable 12 years Rahel de leon [facility] 05/02/2022 11:35:12 3 text/html HyperlipidemiaReported bypatient.Type of hyperlipidemia:hypertriglyc eridemia Duration:new onset Prior Tests:highest triglyceride level:; 509 Compliance:noncompliant with diet(breakfast pt will eat a lot of fried foods) Complications:no coronary artery disease; no peripheral artery disease; no cardiovascular disease Estrada Lees is 52 year old M who presented to the for follow-up on his chronic conditions. 1) DVT: pt is currently on eliquis for a provoked DVT. Has not yet completed three months. Goal is to stop medication. Pt continues to have swelling in the leg but no pain. EDUARDA MADRIGAL MD [address], [address], [facility] 07/29/2022 12:20:45 4 text/html Estrada Mcqueen is a 53 year old M who presented to the clinic for his annual exam. Pt denies any hospitalizations or emergency room visits during this time. Complaints: none Is not using ASA.OTC/Herbal supplements use: none Sex hx: pt sexually active with his wifeSTI: hx of HIV -> sees HIV specialist- non detectable 12 yearsDrug use: marijuana occasionallyEtoh use: socially, 4 glasses a weektobacco use: uses e-cigarette's will use about 5 times a weekspf/derm: does not Dental: has not been in several years, has booked the appoitmentEye: last year, wears glassesDiet: regularActivity: cycling (2X a week) EDUARDA MADRIGAL MD [address] [address], [place], [address], [facility] 07/20/2023 11:41:17
[2024-08-06 18:24] LABS: HIV RNA PCR Qn Copies NOT DETECTED copies/mL (NOT DETECTED); HIV RNA PCR Qn Log Copies NOT DETECTED (NOT DETECTED)
== END 2024-08-04 14:39 | disposition home or self-care (01) ==
LOC: HO.LAB 14:38
PROVIDERS: Visit Provider Internal Medicine
DX: B20 Human immunodeficiency virus [HIV] disease (principal)
CPT/HCPCS: 36415; 87536

== ENCOUNTER 2024-08-31 12:52 | Outpatient (AMB) | payer OTHER, SELFPAY ==
--- NOTE | 2024-08-31 13:01 | A.OFFVIS_ITS ---
Vital Signs 08/31/24 13:03 Pulse 86 Pulse Source Pulse Oximeter Pulse Oximetry (%) 96 Intake Visit Reasons: 6 month HIv labs Allergies No Known Allergies Allergy (Verified 08/31/24 13:03) HPI HPI 6 month HIv labs: Details: He is doing well He has viral load undetectable on 08/04. He has no complaints He is seeing his PCP in November. He is not on a statin. He has a tremor,otherwise no concerns. [facility] Medical History Hypovitaminosis D Epigastric pain HIV (human immunodeficiency virus infection) Family History Mother Diabetes Maternal Grandmother Diabetes Social History Alcohol intake: current Patient Tobacco Use Status: Never used Tobacco Review of Systems Const All systems reviewed & are unremarkable except as noted in HPI and below Physical Exam Vital Signs: Last Vital Signs Pulse 86 08/31/24 13:03 Pulse Ox 96 08/31/24 13:03 Const General: cooperative Orientation/consciousness: patient oriented x3 HEENT Head: Yes normal to inspection Mouth: Normal oral and palatal mucosa present Eyes General: appearance normal, both eyes and all related structures Pupils: Equal, round and reactive pupils present Resp Effort & Inspection: normal respiratory effort Cardio Rate: regular rate Rhythm: regular rhythm GI Palpation (GI): Soft to palpation and nontender General: Yes no CVA tenderness Back/Spine/Pelvis Back: no CVA tenderness Skin General skin exam: no rashes or lesions noted Neuro General: patient oriented x3 Cranial nerves: Yes CN's II-XII intact bilaterally and Yes Equal, round and reactive pupils present Extrem General: Yes normal to inspection Psych Appearance: grossly normal Assessment & Plan Assessment & Plan (1) HIV (human immunodeficiency virus infection): Comment: He has been doing well. He has CD4 count 1185 and viral load undetectable. Would continue Genvoya. Check CD4 count and viral load in six months. Consider statin as HIV is independent risk factor for CAD. Check cholesterol. He will consider rectal Pap in future. He is not interested today. See in six months Genvoya drug interactions dont include tremor Code(s): B20 - Human immunodeficiency virus [HIV] disease Category: Medical Plan as below Coding Level of Care Code Est Pt Level 3 (71521) Diagnoses HIV (human immunodeficiency virus infection) B20
[2024-08-31 13:03] VITALS: PULSE 86; O2SAT 96
--- OUTSIDE RECORDS SUMMARY | 2024-08-31 13:56 | XMS_ITS | Data Portability ---
Author Organization [facility], Main Office Address [address] [facility] [address] [place] [address] Care Team Providers Care Ware Finisher Name Role Phone EDUARDA MADRIGAL Primary Care Provider [facility] GASTRO[facility] Global Director Air And Climate Change [facility] INFECTIOUS DISEASE Infectious Disease Assessment No assessment recorded. Plan of Treatment Reminders Order Date Submit Date Provider Last Modified By Organization Details Last Modified Time Details Appointments PE EST 2024 10:15A Anne Marie MADRIGAL MD Not available Not available Not available Lab lipid panel, serum 2023 024 [email or web address] [facility], [address], [place], [address], 12/29/2023 10:24:38 BMP, serum or plasma 2023 024 [facility], [address], [place], [address], 07/20/2023 10:29:16 CBC w/ auto diff 2023 024 [facility], [address], [place], [address], 07/20/2023 10:29:16 TSH, serum or plasma 2023 024 [facility], [address], [place], [address], 07/20/2023 10:29:16 lipid panel, serum 2022 023 [email or web address] [facility], [address], [address], [place], [address], 01/06/2023 14:06:04 hepati tis C virus Ab, serum 2022 023 [facility], [address], [address], [place], [address], 05/28/2022 09:51:14 lipid panel, serum 2022 023 [facility], [address], [place] [address], [place], [address], 05/27/2022 17:45:53 BMP, serum or plasma 2022 023 [facility], [address], [facility] [address], [place], [address], 05/27/2022 17:45:51 CBC w/ auto diff 2022 023 [facility], [address], [facility] [address], [place], [address], 05/27/2022 16:22:27 TSH, serum or plasma 2022 023 [facility], [address], [place] [address], [place], [address], 05/27/2022 17:55:42 Referral vascul zenon cooley referr al - was diagno sed in 2022, clot his improv ement, pt just wants some guidan ce 2023 024 [facility], [address] [facility], [facility] [address], [place], [address], 07/27/2023 08:19:14 Procedures colono scopy screen ing (PROC) 2023 024 [email or web address] Not available 07/20/2023 10:37:26 colono scopy screen ing (PROC) 2022 023 [email or web address] Not available 11/11/2022 10:25:41 Surgeries None record ed. Imaging US, duplex , venous , lower extrem ity, unilat eral - hx of DVT on the right side, pt would like to ensure to ensure cloth dissol jt 2022 023 [facility] (Ultrasound), [address] [place] [address], [address], 07/29/2022 19:02:39 Medication Orders Eliqui s 2.5 mg tablet 2022 023 [facility], [address] [place], [address], 07/29/2022 15:43:35 Eliqui s 2.5 mg tablet 2022 023 [facility], [address] [place] [address], [address], 05/01/2022 11:51:15 Patient TargetsNo targets recorded. Patient Instructions Encounter Date Encounter Id Patient Instructions Last Modified By Organization Details Last Modified Time 05/01/2022 [id number] Colon Cancer Screening A Not available 05/01/2022 10:04:37 07/20/2023 [id number] Colon Cancer Screening A Not available 07/20/2023 [...] unila teral No observ ation record ed. Former[facility] [address] [address], [place], [address], 07/30/2022 08:16:38 08/06/19 23 08/05/2022 US, duple [...] patent more inferi ananda in the calf. Charge Poster ior tibial veins: The visual ized portio [...] patent femora l collat eral vein. WSN: [id number] Orderi ng Physic alix: Carlos Cortez ie Dictat ed By: Lor Eckert MD Dictat ed Date/T jesús: 10:59 a Review ed By: Lor Eckert MD Signed By: Lor Eckert MD Signed Date/T jesús: 10:59 am Transc ribed By: PATRIC Transc ribed Date/T jesús: 10:52 am Patien t Class: Outpat ient [facility] (Outpt Imaging) [address], [place], [address], 08/07/2022 13:09:18 07/27/19 24 07/24/2023 US, duple x, venou s, lower extre mity, unila teral No observ ation record ed. [place] [id number] [facility] [address], [place], [address], 07/27/2023 12:02:29 10/23/19 24 10/22/2023 US, duple x, venou s, lower extre mity No observ ation record ed. [address] [facility]in [facility] [address], [place], [address], 10/24/2023 08:59:08 Result Notes None recorded. Problems Name Problem SNOMED Code Status Onset Date Resolution Date Notes Provider Name and Address Organization Details Recorded Time Deep venous thrombosis of lower extremity 578996872 Active 2022 occured in 02/2022 EDUARDA MADRIGAL MD [address], [place], [address], [facility] 3 09:46:30 Human immunodefi ciency virus infection 24444821 Active 2022 follows with ID (levels undetectab le for 12 years) EDUARDA MADRIGAL MD [address], [place], [address], [facility] 3 11:11:02 Obesity 101932559 Active 2022 Rahel de leon, [facility] 3 11:34:06 Problem Notes None recorded. Procedures Surgical History None recorded. Imaging Results Imaging Date Name Status LastModified by [facility] Details LastModified Time 07/29/2022 US, duplex, venous, lower extremity, unilateral completed [address], [place], [address], 07/30/2022 08:16:38 08/05/2022 US, duplex, venous, lower extremity, unilateral completed [facility] (Outpt Imaging) [address], [place], [address], 08/07/2022 13:09:18 07/24/2023 US, duplex, venous, lower extremity, unilateral completed [facility] [address] [facility] [address], [place], [address], 07/27/2023 12:02:29 10/22/2023 US, duplex, venous, lower extremity completed [facility] [address] [facility] [address], [place], [address], 10/24/2023 08:59:08 Procedure Notes None recorded. Medical [...] Updated DateTime 3 185.42 cm 33 kg/m2 173812. 09 g 75 /min 99 % 99 % 98.2 [degF] 135 mm[Hg] 79 mm[Hg] Kimberli Asif MA [facility] 3 09:38:16 Date Recorded Body height Body mass index (BMI) Body weight Heart rate Oxygen saturation Oxygen saturation in Arterial blood by Pulse oximetry Body temperature Systolic blood pressure Diastolic blood pressure Provider Name and Address Organization Details Last Updated DateTime 3 185.42 cm 30.3 kg/m2 206218. 25 g 95 /min 96 % 96 % 98.1 [degF] 122 mm[Hg] 69 mm[Hg] Fortunato Bass MA [facility] 3 11:33:08 Date Recorded Body height Body mass index (BMI) Body weight Oxygen saturation Oxygen saturation in Arterial blood by Pulse oximetry Heart rate Body temperature Systolic blood pressure Diastolic blood pressure Provider Name and Address Organization Details Last Updated DateTime 4 185.42 cm 30.7 kg/m2 321890. 53 g 97 % 97 % 82 /min 97.8 [degF] 116 mm[Hg] 75 mm[Hg] Shanna May MA [facility] 4 10:11:27 Social History Question Answer Notes LastModified by Organizat ion Details LastModified Time Tobacco Smoking Status Never Smoker EDUARDA MADRIGAL MD [address] 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 Yes Information not available 05/01/2022 How Often Do You Need To Have Someone Help You When You Read Instructions, Pamphlets, Or Other Written Material From Your Doctor Or Pharmacy? Never Information not available 05/01/2022 Have You Served In The ? No [email or web address] Information not available 07/20/2023 Are You Sexually [...] virus, quadrivalent, PF 02/03/2017 completed JONAH Santiago [facility] 05/01/2022 09:30:33 Influenza, split virus, quadrivalent, PF 02/13/2020 completed JONAH Santiago [facility] 05/01/2022 09:30:33 COVID-19, mRNA, LNP-S, PF, 100 mcg/0.5mL dose or 50 mcg/0.25mL dose 05/28/2020 completed JONAH Santiago [facility] 05/01/2022 09:30:33 COVID-19, mRNA, LNP-S, PF, 100 mcg/0.5mL dose or 50 mcg/0.25mL dose 04/17/2021 completed JONAH Santiago [facility] 05/01/2022 09:30:33 Influenza, split virus, quadrivalent, PF 02/08/2021 completed JONAH Santiago, [facility] 05/01/2022 09:30:33 COVID-19, mRNA, LNP-S, PF, 100 mcg/0.5mL dose or 50 mcg/0.25mL dose 04/30/2020 completed JONAH Santiago, [facility] 05/01/2022 09:30:33 Influenza, split virus, quadrivalent, PF 01/26/2023 completed JONAH Rose, [facility] 07/20/2023 10:11:45 Past Encounters Encounter ID Performer Location Encounter Start Date Encounter Closed Date Diagnosis/Indication Diagnosis SNOMED-CT Code Diagnosis ICD10 Code Diagnosis Note [id number] EDUARDA MADRIGAL MD Main Office [address] [facility] [facility] [facility] [place] [phone] 05/01/2022 09:15:29 05/01/2022 10:11:53 Adult health examination 979002453 Z00.00 Health Maintenanc e Kiah) Patient was counseled on healthy diet, exercise and nutrition due to BMI 33. B) Screening: Last PSADate: Result: ???Next: after discussion would like to hold on this Last Colonoscop y: start at age 45-65Date: Result: Next: not yet done, ordered C) Vaccines:I nfluenza: 01/2022TdA P: DUEZoster: due at 94DKM52: due at 12YABN54: due at 09ZNP18:PC V15:COVID: 04/30/2020 , 05/28/2020 , 04/17/2021 D) Routine blood work orderedE) Updated patient's history RTC in one year for annual exam or sooner if any acute complaints Patient ne w to provider 9596371477 40944 Z76.89 - pt did not have any previous records- all history obtained by patient Fatigue 70118882 R53.83 Z00.00 Hyperlipidemia 02618960 E78.5 Z00.00 Hepatitis C screening 41 4252576 Z11.59 Screening for malignant neoplasm of colon 706064904 Z12.11 - pt is due for a colonoscop y, ordered Deep venou s thrombosis of lower extremity 288887201 I82.409 - pt was only on medication for one month and has ran out since- will need to continue on eliquis for 3 more months- there is still some swelling on the right leg- sounded like a provoked attack as pt was diagnosed with DVT after an [address] ride Administra tion of diphtheria, pertussis, and tetanus vaccine 798812631 Z23 - pt is due for vaccinatio n Body mass index 30+ - obesity 364014828 Z68.33 - Cut down on (limit) fast [...] Elevated blood-pressure reading without diagnosis of hypertension 525534689 R03.0 - BP today is 135/95- will await second visit for diagnosis of HTN, pt will need to 2 elevated levels Human immunodeficiency virus infection 31161238 B20 - level has remained undetectab le for 12 years- currently on Genoya given by patient's ID specialist Obesity 355674206 E66.9 [id number] EDUARDA MADRIGAL MD Main Office [address] [facility] [address] [facility] [place] [address] 07/29/2022 11:14:19 07/29/2022 11:53:30 Deep venous thrombosis of lower extremity 269383169 I82.409 - pt has almost completed his [...] Elevated blood-pressure reading without diagnosis of hypertension 085649464 R03.0 - BP today is 122/69 under good control Hyperlipidemia 05214252 E78.5 Z00.00 - pt has elevated triglyceri hakan at 509- pt has undergo 3 months of lifestyle modificati ons: has been eating better and has lost weight (about 20 lbs)- ordered repeat lipid panel to check if the levels of triglyceri hakan has improved [id number] EDUARDA MADRIGAL MD Main Office [address] [facility] [address] [facility] [place] [phone] 07/20/2023 10:03:58 07/20/2023 10:30:22 Deep venous thrombosis of lower extremity 668322076 I82.409 - US doppler done on 08/05/22 still showed the cloth was present however was no longer occluding- c/w eliquis 2.5mg BID- pt would like to see a vascular surgeon more for reassuranc e as he continues to have intermitte nt leg swelling- discussed bleeding risks Hyperlipidemia 94519714 E78.5 Z00.00 - pt has elevated triglyceri hakan at 509- pt has undergo 3 months of lifestyle modificati ons: has been eating better and has lost weight (about 20 lbs)- ordered repeat lipid panel to check if the levels of triglyceri hakan has improved Adult [facility] th examination 926536560 Z00.00 Health Maintenanc e Kiah) Patient was counseled on healthy diet, exercise and nutrition due to BMI 30.7. B) Screening: Last PSADate: Result: ???Next: will start at 55 Last Colonoscop y: start at age 45-65Date: Result: Next: not yet done, ordered C) Vaccines:I nfluenza: 01/2023TdA P: DUE, orderedZos ter: orderedPCV 13: due at 03UEST51: due at 06KYI26:PC V15:COVID: 04/30/2020 , 05/28/2020 , 04/17/2021 D) Routine blood work orderedE) Updated patient's history RTC in one year for annual exam or sooner if any acute complaints Obesity 547582936 E66.9 Body mass index 30+ - obesity 623695656 Z68.33 - Cut down on (limit) fast [...] tion of diphtheria, pertussis, and tetanus vaccine 921524966 Z23 - pt is due for vaccinatio n Fatigue 35752592 R53.83 Z00.00 Human immunodeficiency virus infection 03417102 B20 - level has remained undetectab le for 12 years- currently on Genoya given by patient's ID specialist , will request records Screening for malignant neoplasm of colon 279787864 Z12.11 - pt is due for a colonoscop y, ordered Varicella vaccination 68 582942 Z23 Health Concerns Section Related Observation LastModified by Organization Detai ls LastModified Time None Recorded Concern Status LastModified by Organization Details LastModified Time None Recorded Advance Directives Directive N: Payers Encounter Date Sequence Insurance Name Policy Number Policy Diaz Covered Member ID Diaz Member ID Guarantor Name 05/01/2022 1 [facility] ([facility]) [id number] Estrada Mcqueen [id number] Estrada Mcqueen 07/29/2022 1 [facility] ([facility]) [id number] Estrada Mcqueen [id number] Estrada Mcqueen 07/20/[address] [place] [address] ([facility]) [id number] Estrada Mcqueen [id number] Estrada Richar Notes Date Note Type Note [...] HIV specnon detectable 12 [facility] 11:35:12 3 text/html HyperlipidemiaReported bypatient.Type of [...] but no pain. EDUARDA MADRIGAL MD [address], [address], [facility] 07/29/2022 12:20:45 4 text/html Estrada Mcqueen is [...] cycling (2X a week) EDUARDA MADRIGAL MD [address] [address], [place], [address], [facility] 07/20/2023 11:41:17
--- OUTSIDE RECORDS SUMMARY | 2024-08-31 13:56 | XMS_ITS | Continuity of Care Document ---
Author Organization [facility] Address [address] [facility] [address] [place] [address] Phone Care Team Providers Care Warranty Coordinator Name Role Phone Zaki HENNING, RVT, BISI, [...] Mins- [place] & [place] [facility], [address] [place] [address] [address], [id number], [place] tel:[phone] CVR - [facility] Venous insufficiency (chronic) (peripheral) 4 Zaki HENNING RVT, RPVI Robert. [address] [facility], [address], [place], [id number] , [place]. tel:[phone] Referring Provider: Eduarda Madrigal MD, [address] [facility] [facility], [address], [place], [address]. tel:[phone] [place] [facility], [address] [place] [address] [facility] [address] [address], [id number], [place] tel:[phone] CVR [place] Encounter for follow-up examination after completed treatment for conditions other than malignant neChronic venous hypertension (idiopathic) with other complications of right lower extremity 4 Zaki HENNING RVT, RPVI Robert. [facility]0 [facility], [address], [place], [id number] , [place]. tel:[phone] Referring Provider: Eduarda Madrigal MD, [address] [facility] [address] [place] [address], suite [facility], [place], [address]. tel:[phone] [place] [facility], [address] [place] [address] [facility] [address]Suite [place], [id number], [place] tel:[phone] CV[place] Encounter for follow-up examination after completed treatment for conditions other than malignant nePain in right leg 4 Zaki HENNING RVT, RPVI Robert. [facility]0 [facility], [address], [place], [id number] , [place]. tel:[phone] Referring Provider: Eduarda Madrigal MD, [address] [facility]0 [facility], [address], [place], [address]. tel:[phone] [place] [facility], [address] [place] [address] [facility] [address], [id number], [place] tel:[phone] CV[place] Varicose veins of right lower extremity with other complications 4 Zaki HENNING RVT, RPVI Robert. [address] [place] [address], [place], [id number] , [place]. tel:[phone] Referring Provider: Eduarda Madrigal MD, [facility]0 [place] [address], [place], [address]. tel:[phone] [place] [facility], [address] [place] [address] [facility] 1000[facility] 1000[place], [id number], tel:[phone] CVR - [place] Chronic venous hypertension (idiopathic) with inflammation of right lower extremity 4 Zaki HENNING RVT, BISI Chavez. [address] [place] [address], [place], [id number] , [place]. tel:[phone] Referring Provider: Eduarda Madrigal MD, [facility]0 [place] [address], [place], [address]. tel:[phone] [place] [facility], [address] [place] [address] [facility] [address] [address], [place], [id number], tel:[phone] CV[place] No Information 4 Zaki HENNING RVT, BISI Chavez. [address] [place] [address], [place], [id number] , [place]. tel:[phone] Offic Cons New/estab Mod [address] Mi- [place] & [place] [facility], [address] [place] [address] [facility] 1000[facility] 1000[place], [id number], tel:[phone] CVR [place] Varicose veins of right lower extremity with other complicationsPa in in right lower legPain in right legLocalized edemaRestless legs syndromePruritu s, unspecifiedCram p and spasm 4 Zaki HENNING RVT, BISI Chavez. [address] [place] [address], [place] [address], [facility] [place], [id number] , [place]. tel:[phone] Referring Provider: Eduarda Madrigal MD, [facility]0 Main [facility] [address] [place] [address], [place], [address]. tel:[phone] [facility], [address] [facility] [address], [place], [id number], [place] tel:[phone] CVR [place] Pain in left leg Zaki HENNING, RVT, RPKAI Scott. [address] [facility], [address], [facility] [place] [place], [id number] , [place]. tel:[phone] Referring Provider: Eduarda Madrigal MD, [address] [facility] 207 [address] [facility], [address], [place], [address]. tel:[phone] Family History Family Member Type Diagnosis Age At Onset No Information Payers Payer name Insurance type Covered libertarian ID Dariel banuelos(s) [employer] [facility] [id number] Social History Type Description Quantity Date Captured [...] Information Instructions Date Instruction Additional Infor mation Diet education Related to Body mass index (BMI) 36.0-36.9, adult Giving Encouragement to exercise Related to Body mass index (BMI) 36.0-36.9, adult Lifestyle education Related to B mylene mass index (BMI) 36.0-36.9, adult Compression stocking usage as conservative measure Related to Venous insufficiency (chronic) (peripheral) Patient education booklet given Related to Venous insufficiency (chronic) (peripheral) Diet education Related to Body mass index (BMI) 36.0-36.9, adult Giving Encouragement to exercise Related to Body mass index (BMI) 36.0-36.9, adult Lifestyle education Related to B mylene mass index (BMI) 36.0-36.9, adult Patient education booklet given Related to Varicose veins of right lower extremity with other complications Pre and post instruc tions reviewed and provided Related to Varicose veins of right lower extremity with other complications Assessments Type Assessment Date No Information Patient Care Teams Name Effective Dates (start - stop) Status Members No Information
== END 2024-08-31 13:29 | disposition home or self-care (01) ==
LOC: HO.HID 12:52
PROVIDERS: Visit Provider Internal Medicine
DX: B20 Human immunodeficiency virus [HIV] disease (principal)
CPT/HCPCS: 99213

== ENCOUNTER → 2024-08-31 12:52 | Outpatient (BNVA) | payer OTHER, SELFPAY | PROVIDERS: Visit Provider Internal Medicine ==

== ENCOUNTER 2025-03-06 15:43 | Outpatient (REF) | payer OTHER, SELFPAY ==
--- OUTSIDE RECORDS SUMMARY | 2023-10-22 10:45 | XMS_ITS | Continuity of Care Document ---
Author Organization [facility] Address [address] [place] [address] Phone Care Team Providers Care Call Center Recruiter Name Role Phone Zaki HENNING, RVT, BISI, Scott Unavailable U navailable Allergies, Adverse Reactions, Alerts Substance Reaction Status Criticality No Known Allergies Active No Inform ation Procedures Procedure Date Office/Outpt E&M Established 15 Mins- CT & [place] Duplex Scan-extrem Veins; Uni/ CT & [place] J Duplex Scan-extrem Veins; Uni/ CT & MA M Endovenous Laser, 1st Vein- CT & [place] Endovenous Laser, 1st Vein- CT & [place] Ultrason Guidan Needle Bx-rad- CT & MA M Inj Sclerosing Solution; Sngl- CT & [place] M Offic Cons New/estab Mod 40 Mi- CT & [place] Duplex Scan-extrem Veins; Uni/ CT & [place] M Advance Directives Directive Yes / No Effective Date File Name No Information Encounters Encounter Description Practice Location Reason(s) For Visit Diagnoses Date Provider Providers Copied on Encounter Office/Outpt E&M Established 15 Mins- [place] & [place] [facility], [address] [place] [address] [address], [id number], [place] tel:[phone] CVR - [facility] Venous insufficiency (chronic) (peripheral) 4 Zaki HENNING RVT, RPVI Robert. [address] [facility], [address], [place], [id number] , [place]. tel:[phone] Referring Provider: Eduarda Madrigal MD, [address] [facility] [facility], [address], [place], [address]. tel:[phone] [facility], [address] [place] [address] [facility] [address] [address], [id number], [place] tel:[phone] CVR - [place] Encounter for follow-up examination after completed treatment for conditions other than malignant neChronic venous hypertension (idiopathic) with other complications of right lower extremity 4 Zaki HENNING RVT, RPVI Robert. [facility] [facility], [address], [place], [id number] , [place]. tel:[phone] Referring Provider: Eduarda Madrigal MD, [address] [facility] [address] [place] [address], suite [facility], [place], [address]. tel:[phone] Reedy Di [facility], [address] [place] [address] [facility] [address], [id number], [place] tel:[phone] CVR - [place] Encounter for follow-up examination after completed treatment for conditions other than malignant nePain in right leg 4 Zaki HENNING RVT, RPVI Robert. [facility], [address], [place], [id number] , [place]. tel:[phone] Referring Provider: Eduarda Madrigal MD, [address] [facility], [address], [place], [address]. tel:[phone] Lou [facility], [address] [place] [address] [facility] [address], [id number], [place] tel:[phone] CVR [place] Varicose veins of right lower extremity with other complications 4 Zaki HENNING RVT, RPVI Robert. [address] [place] [address], [place], [id number] , [place]. tel:[phone] Referring Provider: Eduarda Madrigal MD, [facility] [place] [address], [place], [address]. tel:[phone] Re[facility] For [facility], [address] [place] [address] [facility] [address] [address], [id number], tel:[phone] CVR - [place] Chronic venous hypertension (idiopathic) with inflammation of right lower extremity 4 Zaki HENNING RVT, BISI Chavez. [address] [place] [address], [place], [id number] , [place]. tel:[phone] Referring Provider: Eduarda Madrigal MD, [facility] [place] [address], [place], [address]. tel:[phone] [facility], [address] [place] [address] [facility] [address] [address], [place], [id number], tel:[phone] CVR - [place] No Information 4 Zaki HENNING RVT, BISI Chavez. [address] [place] [address], [place], [id number] , [place]. tel:[phone] Offic Cons New/estab Mod 40 Mi- CT & [place] [facility], [address] [place] [address] [facility] [address] [address], [id number], tel:[phone] CVR [place] Varicose veins of right lower extremity with other complicationsPa in in right lower legPain in right legLocalized edemaRestless legs syndromePruritu s, unspecifiedCram p and spasm 4 Zaki HENNING RVT, BISI Chavez. [address] [place] [address], [place] [address], [facility] [place], [id number] , [place]. tel:[phone] Referring Provider: Eduarda Madrigal MD, [facility] [address] [facility] [address] [place] [address], [place], [address]. tel:[phone] [facility], [address] [facility] [address], [place], [id number], [place] tel:[phone] CVR [place] Pain in left leg Zaki HENNING, RVT, RPKAI Scott. [address] [facility], [address], [facility] [place], [id number] , [place]. tel:[phone] Referring Provider: Eduarda Madriagl MD, [address] [facility] [address] [facility], [address], [place], [address]. tel:[phone] Family History Family Member Type Diagnosis Age At Onset No Information Payers Payer name Insurance type Covered constitution party ID Dariel banuelos(s) [employer] [facility] [id number] Social History Type Description Quantity Date Captured Comments Alcohol Use Details Unknown Caffeine Use Details Unknown Tobacco Use Status Current non-smoker Smoking Status Never Smoker Non-Smoking Tobacco Use Details : No Details Available : No Details Available Sex Male Vital Signs Date / Time: Height Weight BMI Pulse Rate Blood Pressure Temperature Respiratory Rate Body Surface Area Head Circumference Head Circ. Percentile Wt./Guillermo. Percentile BMI percentile Pulse Ox Inhaled Ox 124.740 kg (275.00 lbs) 36.3 0 kg/m eter (2) 130/70 mm[Hg] Chief Complaint And Reason For Visit No Information Reason For Referral Reason For Referral No Information Plan Of Treatment Date Type Action Status Goal Diet education completed Goal Diet education completed Referral Ordered: Weight management: Referral to physician timeframe: 3 Months (related to Body mass index (BMI) 36.0-36.9, adult) ordered Referral Ordered: Weight management: Referral to physician timeframe: 3 Months (related to Body mass index (BMI) 36.0-36.9, adult) ordered History Of Present Illness Encounter Date Complaint History Of Prese nt Illness No Information Functional Status Date Functional Assessmen t No Information Instructions Date Instruction Additional Infor mation Patient education booklet given Related to Venous insufficiency (chronic) (peripheral) Compression stocking usage as conservative measure Related to Venous insufficiency (chronic) (peripheral) Lifestyle education Related to B mylene mass index (BMI) 36.0-36.9, adult Giving Encouragement to exercise Related to Body mass index (BMI) 36.0-36.9, adult Diet education Related to Body mass index (BMI) 36.0-36.9, adult Pre and post instruc tions reviewed and provided Related to Varicose veins of right lower extremity with other complications Patient education booklet given Related to Varicose veins of right lower extremity with other complications Lifestyle education Related to B mylene mass index (BMI) 36.0-36.9, adult Giving Encouragement to exercise Related to Body mass index (BMI) 36.0-36.9, adult Diet education Related to Body mass index (BMI) 36.0-36.9, adult Assessments Type Assessment Date No Information Patient Care Teams Name Effective Dates (start - stop) Status Members No Information
--- OUTSIDE RECORDS SUMMARY | 2025-03-06 17:44 | XMS_ITS | Data Portability ---
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 Plan of Treatment Reminders Order Date Submit Date Provider Last Modified By Organization Details Last Modified Time Details Appointments None recor ded. Lab lipid panel , serum 2024 025 [facility], [address], [facility], [place], [address], 10:45:49 CMP, serum or plasm a 2024 025 [facility] (Centralized Electronic Ordering - All Locations), Patient Can Go To The Location Of Their Choice, 20:05:53 CBC w/ auto diff 2024 025 [facility] (Centralized Electronic Ordering - All Locations), Patient Can Go To The Location Of Their Choice, [address] 20:05:52 vitam in B12, serum 2024 025 [facility] (Centralized Electronic Ordering - All Locations), Patient Can Go To The Location Of Their Choice, [address] 20:05:54 elliot ine, QN, blood 2024 025 [facility] (Centralized Electronic Ordering - All Locations), Patient Can Go To The Location Of Their Choice, [address] 5 20:05:53 cerul oplas min, serum 2024 025 [facility] (Centralized Electronic Ordering - All Locations), Patient Can Go To The Location Of Their Choice, [address] 5 20:05:55 lipid panel , serum 2023 024 [email or web address] [facility], [address], [address], [place], [address], 4 10:24:38 BMP, serum or plasm a 2023 024 [facility], [address], [address], [place], [address], 4 10:29:16 CBC w/ auto diff 2023 024 [facility], [address], [address], [place], [address], 4 10:29:16 TSH, serum or plasm a 2023 024 [facility], [address], [address], [place], [address], 4 10:29:16 lipid panel , serum 2022 023 [email or web address] [facility], [address], [address], [place], [address], 3 14:06:04 hepat itis C virus Ab, serum 2022 023 [facility], [address], [address], [place], [address], 3 09:51:14 lipid panel , serum 2022 023 [facility], [address], [address], [place], [address], 3 17:45:53 BMP, serum or plasm a 2022 023 [facility], [address], [address], [place], [address], 3 17:45:51 CBC w/ auto diff 2022 023 [facility], [address], [address], [place], [address], 3 16:22:27 TSH, serum or plasm a 2022 023 [facility], [address], [address], [place], [place], [address], 3 17:55:42 Referral vascu lar surge on refer ral - was diagn osed in 2022, clot his impro vemen t, pt just wants some faustino nce 2023 024 [facility], [address], [address], [place], [address], 4 08:19:14 Procedures colon oscop y scree deidre (PROC ) 2024 025 [facility] [place], [address] [facility], [place], [address], 5 13:54:14 colon oscop y scree deidre (PROC ) 2023 024 [email or web address] Not available 4 10:37:26 colon oscop y scree deidre (PROC ) 2022 023 [email or web address] Not available 3 10:25:41 Surgeries None recor ded. Imaging MRI, brain , w/o contr ast - new tremo r, worse deidre on the right hand 2024 025 SPENSER Not available 18:23:16 US, scrot um - AND GRADY NT 2024 025 Not available 11:23:38 US, duple x, venou s, lower extre mity, unila teral - hx of DVT on the right side, pt would like to ensur e to ensur e cloth disso lved 2022 023 [facility] (Ultrasound), [address] [place] [address], [address], 19:02:39 Medication Orders Eliqu is 2.5 mg table t [address] [facility], [address] [place] [address], [address], 15:43:35 Eliqu is 2.5 mg table t [address] [facility], [address] [place] [address], [address], 11:51:15 Patient TargetsNo targets recorded. Patient Instructions Encounter Date Encounter Id Patient Instructions Last Modified By Organization Details Last Modified Time 05/01/2022 [id number] Colon Cancer Screening [facility] Not available 05/01/2022 10:04:37 07/20/2023 [id number] Colon Cancer Screening [facility] Not available 07/20/2023 10:29:16 medical record request* Not available 07/20/2023 11:44:19 12/09/2024 [id number] Colon Cancer Screening [facility] Not available 12/09/2024 10:45:35 medical record request* Not available 12/12/2024 09:42:19 Reason for Referral Vascular Surgeon Referral fo r Deep venous thrombosis of lower extremity was diagnosed in 2022, clot his improvement, pt just wants some guidance Referring Physician: Eduarda Madrigal, Family Medicine, Encounter Date: 07/20/2023 Results Created Date Observation Date Name Description Value Unit Range Abnormal Flag Note LastModifiedBy Organization Detail LastModifiedTime 05/27/1905/27/2022 COMPL ETE CBC WITH DIFF WBC 7.6 K/mm3 (4.0-1 1.0) Not Available [facility] (Centralized Electronic Ordering - All Locations) Patient Can Go To The Location Of Their Choice, 05/27/2022 16:22:05/27/1905/27/2022 COMPL ETE CBC WITH DIFF RBC 4.47 M/mm3 (4.70- 6.10) low Not Available [facility] (Centralized Electronic Ordering - All Locations) Patient Can Go To The Location Of Their Choice, 05/27/2022 16:22:05/27/1905/27/2022 COMPL ETE CBC WITH DIFF HGB 14.1 [...] 16:22:27 05/27/1905/27/2022 COMPL ETE CBC WITH DIFF MCH 31.5 pg (27.0- 34.0) Not Available [facility] (Centralized Electronic Ordering - All Locations) Patient Can Go To The Location Of Their Choice, 05/27/2022 16:22:27 05/27/1905/27/2022 COMPL ETE CBC WITH DIFF MCHC 32.7 [...] 23 05/27/2022 COMPL ETE CBC WITH DIFF imm gran 0.3 % Not Available [facility] (Centralized Electronic Ordering - All Locations) Patient Can Go To The Location Of Their Choice, 05/27/2022 16:22:27 05/27/19 23 05/27/2022 BASIC METAB OLIC PANEL glucose 102 mg/dL [...] The Location Of Their Choice, 05/27/2022 17:45:51 01/31/20 23 05/27/2022 BASIC METAB OLIC PANEL chloride 105 mmol/ [...] Their Choice, 05/27/2022 17:45:53 05/27/1905/27/2022 LIPID PANEL LDL cholesterol, calculated 36 mg/dL (0-130 ) Not Available [facility] (Centralized Electronic Ordering - All Locations) Patient Can Go To The Location Of Their Choice, 05/27/2022 17:45:53 05/27/1905/27/2022 LIPID PANEL non HDL cholesterol (calc) 138 mg/dL (<160) Not Available [facility] ([facility] Ordering - All Locations) Patient Can Go To The Location Of Their Choice, 05/27/2022 17:45:53 05/27/1905/27/2022 TSH WITH REFLE X TO FT4 TSH 1.93 uIU/m L (0.4-4 .2) Not Available [facility] (Centralized Electronic Ordering - All Locations) Patient Can Go To The Location Of Their Choice, 05/27/2022 17:55:42 05/27/1905/28/2022 ANTI- HEPAT ITIS C anti-hepatit is C (neg) normal NEGAT ALANIS Refer ence range : Negat alanis This test was perfo rmed on the Abbot t Archi tect immun oassa y syste m. Not Available [facility] (Centralized Electronic Ordering - All Locations) Patient Can Go To The Location Of Their Choice, 05/28/2022 09:51:14 10/05/1910/04/2024 CBC WITH DIFFE RENTI AL/PL ATELE T WBC 6.2 x10e3 /uL 3.4-10 .8 normal Not Available [facility] ([facility]) [address] [facility], [place], [address], 10/10/2024 20:05:52 10/05/19 25 10/04/2024 CBC WITH DIFFE RENTI AL/PL ATELE T RBC 4.51 x10e6 /uL 4.14-5 .80 normal Not Available [facility] ([facility]) [address] [facility], [place], [address], 10/10/2024 20:05:52 10/05/19 25 10/04/2024 CBC WITH DIFFE RENTI AL/PL ATELE T hemoglobin 14.2 g/dL 13.0-1 7.7 normal Not Available [facility] ([facility]) [address] [place], [address], 10/10/2024 20:05:52 10/05/19 25 10/04/2024 CBC WITH DIFFE RENTI AL/PL ATELE T hematocrit 43.8 % 37.5-5 1.0 normal Not Available [facility] ([facility]) [address] [place], [address], 10/10/2024 20:05:52 10/05/19 25 10/04/2024 CBC WITH DIFFE RENTI AL/PL ATELE T MCV 97 fL 79-97 normal Not Available [facility] ([facility]) [address] [place], [address], 10/10/2024 20:05:52 10/05/19 25 10/04/2024 CBC WITH DIFFE RENTI AL/PL ATELE T MCH 31.5 pg 26.6-3 3.0 normal Not Available [facility] ([facility]) [address] [place], [address], 10/10/2024 20:05:52 10/05/19 25 10/04/2024 CBC WITH DIFFE RENTI AL/PL ATELE T MCHC 32.4 g/dL 31.5-3 5.7 normal Not Available [facility] ([facility]) [address] [place], [address], 10/10/2024 20:05:52 10/05/19 25 10/04/2024 CBC WITH DIFFE RENTI AL/PL ATELE T RDW 13.0 % 11.6-1 5.4 Not Available [facility] ([facility]) [address] [facility], [place], [address], 10/10/2024 20:05:52 10/05/19 25 10/04/2024 CBC WITH DIFFE RENTI AL/PL ATELE T platelets 200 x10e3 /uL 150-45 0 normal Not Available [facility] ([facility]) [address] [facility], [place], [address], 10/10/2024 20:05:52 10/05/19 25 10/04/2024 CBC WITH DIFFE RENTI AL/PL ATELE T neutrophils 51 % not estab. normal Not Available [facility] ([facility]) [address] [facility], [place], [address], 10/10/2024 20:05:52 10/05/19 25 10/04/2024 CBC WITH DIFFE RENTI AL/PL ATELE T lymphs 40 % not estab. normal Not Available [facility] ([facility]) [address] [facility], [place], [address], 10/10/2024 20:05:52 10/05/19 25 10/04/2024 CBC WITH DIFFE RENTI AL/PL ATELE T monocytes 8 % not estab. normal Not Available [facility] ([facility]) [address] [facility], [place], [address], 10/10/2024 20:05:52 10/05/19 25 10/04/2024 CBC WITH DIFFE RENTI AL/PL ATELE T eos 1 % not estab. normal Not Available [facility] ([facility]) [address] [facility], [place], [address], 10/10/2024 20:05:52 10/05/19 25 10/04/2024 CBC WITH DIFFE RENTI AL/PL ATELE T basos 0 % not estab. 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 0 normal Not Available [facility] ([facility]) [address] [place], [address], 10/10/2024 20:05:52 10/05/19 25 10/04/2024 CBC WITH DIFFE RENTI AL/PL ATELE T lymphs (absolute) 2.5 x10e3 /uL 0.7-3. 1 normal Not Available [facility] ([facility]) [address] [place], [address], 10/10/2024 20:05:52 10/05/19 25 10/04/2024 CBC WITH DIFFE RENTI AL/PL ATELE T monocytes(ab solute) 0.5 x10e3 /uL 0.1-0. 9 normal Not Available [facility] ([facility]) [address] [place], [address], 10/10/2024 20:05:52 10/05/19 25 10/04/2024 CBC WITH DIFFE RENTI AL/PL ATELE T eos (absolute) 0.1 x10e3 /uL 0.0-0. 4 normal Not Available [facility] ([facility]) [address] [place], [address], 10/10/2024 20:05:52 10/05/19 25 10/04/2024 CBC WITH DIFFE RENTI AL/PL ATELE T baso (absolute) 0.0 x10e3 /uL 0.0-0. 2 normal Not Available [facility] ([facility]) [address] [facility], [place], [address], 10/10/2024 20:05:52 10/05/19 25 10/04/2024 CBC WITH DIFFE RENTI AL/PL ATELE T immature granulocytes 0 % not estab. Not Available [facility] ([facility]) [address] [facility], [place], [address], 10/10/2024 20:05:52 10/05/19 25 10/04/2024 CBC WITH DIFFE RENTI AL/PL ATELE T immature grans (abs) 0.0 x10e3 /uL 0.0-0. 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 METAB OLIC PANEL (14) glucose 76 mg/dL 70-99 normal Not Available [facility] ([facility]) [address] [facility], [place], [address], 10/10/2024 20:05:53 10/05/19 25 10/04/2024 COMP. METAB OLIC PANEL (14) BUN 18 mg/dL 6-24 normal Not Available [facility] ([facility]) [address] [place], [address], 10/10/2024 20:05:53 10/05/19 25 10/04/2024 COMP. METAB OLIC PANEL (14) creatinine 1.05 mg/dL 0.76-1 .27 normal Not Available [facility] ([facility]) [address] [facility] [place], [address], 10/10/2024 20:05:53 10/05/19 25 10/04/2024 COMP. METAB OLIC PANEL (14) eGFR 84 mL/mi n/1.7 3 >59 normal Not Available [facility] ([facility]) [address] [facility] [place], [address], 10/10/2024 20:05:53 10/05/19 25 10/04/2024 COMP. METAB OLIC PANEL (14) BUN/creatini ne ratio 17 9-20 normal Not Available [facility] ([facility]) [address] [facility], [place], [address], 10/10/2024 20:05:53 10/05/19 25 10/04/2024 COMP. METAB OLIC PANEL (14) sodium 142 mmol/ L 134-14 4 normal Not Available [facility] ([facility]) [address] [facility] [place], [address], 10/10/2024 20:05:53 10/05/19 25 10/04/2024 COMP. METAB OLIC PANEL (14) potassium 4.1 mmol/ L 3.5-5. 2 normal Not Available [facility] ([facility]) [address] [facility] [place], [address], 10/10/2024 20:05:53 10/05/19 25 10/04/2024 COMP. METAB OLIC PANEL (14) chloride 104 mmol/ L 96-106 normal Not Available [facility] ([facility]) [address] [facility], [place], [address], 10/10/2024 20:05:53 10/05/19 25 10/04/2024 COMP. METAB OLIC PANEL (14) carbon dioxide, total 22 mmol/ L 20-29 normal Not Available [facility] ([facility]) [address] [facility] [place], [address], 10/10/2024 20:05:53 10/05/19 25 10/04/2024 COMP. METAB OLIC PANEL (14) calcium 9.2 mg/dL 8.7-10 .2 normal Not Available [facility] ([facility]) [address] [facility] [place], [address], 10/10/2024 20:05:53 10/05/19 25 10/04/2024 COMP. METAB OLIC PANEL (14) protein, total 7.2 g/dL 6.0-8. 5 normal Not Available [facility] ([facility]) [address] [facility] [place], [address], 10/10/2024 20:05:53 10/05/19 25 10/04/2024 COMP. METAB OLIC PANEL (14) albumin 4.2 g/dL 3.8-4. 9 normal Not Available [facility] ([facility]) [address] [facility] [place], [address], 10/10/2024 20:05:53 10/05/19 25 10/04/2024 COMP. METAB OLIC PANEL (14) globulin, total 3.0 g/dL 1.5-4. 5 Not Available [facility] ([facility]) [address] [facility] [place], [address], 10/10/2024 20:05:53 10/05/19 25 10/04/2024 COMP. METAB OLIC PANEL (14) bilirubin, total 0.3 mg/dL 0.0-1. 2 normal Not Available [facility] ([facility]) [address] [facility] [place], [address], 10/10/2024 20:05:53 10/05/19 25 10/04/2024 COMP. METAB OLIC PANEL (14) alkaline phosphatase 62 IU/L 44-121 normal Not Available [facility] ([facility]) [address] [facility] [place], [address], 10/10/2024 20:05:53 10/05/19 25 10/04/2024 COMP. METAB OLIC PANEL (14) AST (SGOT) 27 IU/L 0-40 normal Not Available [facility] ([facility]) [address] [facility] [place], [address], 10/10/2024 20:05:53 10/05/19 25 10/04/2024 COMP. METAB OLIC PANEL (14) ALT (SGPT) 24 IU/L 0-44 normal Not Available [facility] ([facility]) [address] [facility], [place], [address], 10/10/2024 20:05:53 10/05/19 25 10/10/2024 VITAM IN B1 (THIA MINE) , BLOOD vit. B1, whole blood 133.0 nmol/ L 66.5-2 00.0 Not Available [facility] ([facility]) [address] [place], [address], 10/10/2024 20:05:53 10/05/19 25 10/04/2024 VITAM IN B12 vitamin B12 416 pg/mL 232-12 45 normal Not Available [facility] ([facility]) [address] [place], [address], 10/10/2024 20:05:54 10/05/19 25 10/05/2024 CERUL OPLAS MIN ceruloplasmi n 20.0 mg/dL 16.0-3 1.0 Not Available [facility] ([facility]) [address] [place], [address], 10/10/2024 20:05:55 07/30/19 23 07/29/2022 US, gagan x, vinicio s, lower extre mity, unila teral No observ ation record ed. [facility] [address] [facility] [address], [place], [address], 07/30/2022 08:16:38 08/06/19 23 08/05/2022 US, duple x, venou s, lower extre mity, unila teral US Dopple r Ext Lower Venous Right Reason : R22.43 ; Clinic al [facility] on(s): Other: Follow -up known deep venous thromb osis. Patishanda t is on blood thinne rs. COMPAR MED: Right lower extrem ity Dopple r 2021. IMAGIN G TECHNI QUE: Ultras ound of the veins [...] patent more inferi ananda in the calf. 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 WSN: [id number] Orderi ng Physic alix: Carlos Cortez ie Dictat ed By: Lor Eckert MD Dictat ed Date/T jesús: 10:59 a Review ed By: Lor Eckert MD Signed By: Lor Eckert MD Signed Date/T jesús: 10:59 am Transc ribed By: CSB Transc ribed Date/T jesús: 10:52 am Patien t Class: Outpat ient [facility] (Outpt Imaging) [address] , [place], [address], 08/07/2022 13:09:18 07/27/19 24 07/24/2023 US, duple x, venou s, lower extre mity, unila teral No observ ation record ed. [place] [address] [facility] [address] [address], [place], [address], 07/27/2023 12:02:29 10/23/19 24 10/22/2023 US, duple x, venou s, lower extre mity No observ ation record ed. [place] [address] [facility] [address] [address], [place], [address], 10/24/2023 08:59:08 10/13/19 25 10/11/2024 MRI, brain , w/o contr ast No observ ation record ed. [address] [facility] [address], [place], [address], 10/27/2024 12:56:21 10/18/19 25 10/14/2024 US, scrot um US Scrotu m and Conten ts Reason : Left scrota l swelli ng. No pain. COMPAR MED: None TECHNI QUE: High-r esolut ion sonogr aphy with graysc cookie and color Dopple r analys is. FINDIN GS: RIGHT: Right testic le size: 4.0 x 2.3 x 2.9 cm (13.6 cc). Normal right testic le size, contou r and echote xture withou t suspic ious lesion . 0.2 x 0.1 x 0.2 cm append ix testis . Normal color Dopple r appear ance. Multip le cystic areas in the epidid ymal head, larges t measur ing 0.4 x 0.4 x 0.7 cm with multip le septat ions, likely comple x epidid ymal head cysts or sperma tocele s. 4.4 x 1.5 x 2.5 cm hydroc steven with small amount of layeri ng quality assurance intern al debris . No signif icant varico rossana. 8.6 x 2.0 x 4.8 cm fat-co ntaini ng right inguin al hernia with neck measur ing approx imatel y 1.3 cm, slight ly increa sing in size with Valsal va. Right sperma tic cord not visual ized due to hernia . LEFT: Left testic le size: 4.9 x 2.4 x 2.8 cm (17.1 cc). Normal left testic le size and echote xture withou t suspic ious lesion s. 0.3 x 0.2 x 0.2 cm append ix testis . Normal color Dopple r appear ance. The epidid ymis is not visual ized due to hernia and a large hydroc steven. Large hydroc steven measur ing 11.8 x 7.9 x 10.1 cm with low-le reginald quality assurance intern al echoes and periph eral displa cement of the left testic le. No signif icant varico rossana. 10.7 x 2.2 x 4.5 cm fat-co ntaini ng left inguin al hernia with neck measur ing approx imatel y 0.7 cm, slight ly increa sing size with Valsal va. IMPRES HALIMA: Large left comple x hydroc steven with periph eral displa cement of the left testic le. Small right comple x hydroc steven. No suspic ious testic ular lesion . Modera te-siz ed bilate ral inguin al hernia s. I have person ally review ed the images and I agree with this report . WSN: [id number] Orderi ng Physic alix: Carlos Cortez Dictat ed By: Sheri martinez DO Tammy Dictat ed Date/T jesús: 7:56 am Review ed By: Willy martinez MD, Lc Signed By: Lc Petersen MD Signed Date/T jesús: 8:01 am Transc ribed By: PATRIC Transc ribed Date/T jesús: 7:48 am Patien t Class: Outpat ient [facility] (Outpt Imaging) [address] [place], [address], 10/24/2024 11:56:11 Result Notes None recorded. 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 follows with ID (levels undetectab le for 12 years) EDUARDA MADRIGAL MD [address], [place], [address], [facility] 3 11:11:02 Obesity 976458363 Active 2022 Rahel de leon, [facility] 3 11:34:06 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 Medical Equipment None Reported. Allergies No known drug allergies Medications Name Sig Start Date Stop Date Status Note LastModified by Organization Details LastModified Time Eliquis 2.5 mg tablet TAKE 1 TABLET BY MOUTH TWO TIMES A DAY active Not Available Not Available No t Available Genvoya 150 mg-150 mg-200 mg-10 mg tablet TAKE 1 TABLET BY MOUTH EVERY DAY WITH MEAL/ FOOD active Not Available Not Available No t Available Vitals Date Recorded Body height Body mass index (BMI) Body weight Heart rate Oxygen saturation Oxygen saturation in Arterial blood by Pulse oximetry Body temperature Systolic And Diastolic Provider Name and Address Organization Details Last Updated DateTime 3 185.42 cm 33 kg/m2 243283. 09 g 75 /min 99 % 99 % 98.2 [degF] 135/79 mm[Hg] Kimberli Asif MA [facility] 3 09:38:16 Date Recorded Body height Body mass index (BMI) Body weight Oxygen saturation Oxygen saturation in Arterial blood by Pulse oximetry Heart rate Body temperature Systolic And Diastolic Provider Name and Address Organization Details Last Updated DateTime 4 185.42 cm 30.7 kg/m2 048183. 53 g 97 % 97 % 82 /min 97.8 [degF] 116/75 mm[Hg] Shanna May [facility] 4 10:11:27 Date Recorded Body height Body mass index (BMI) Body weight Heart rate Oxygen saturation Oxygen saturation in Arterial blood by Pulse oximetry Body temperature Systolic And Diastolic Provider Name and Address Organization Details Last Updated DateTime 3 185.42 cm 30.3 kg/m2 156111. 25 g 95 /min 96 % 96 % 98.1 [degF] 122/69 mm[Hg] [facility] Bass [facility] 3 11:33:08 Date Recorded Body height Body mass index (BMI) Body weight Oxygen saturation Oxygen saturation in Arterial blood by Pulse oximetry Heart rate Body temperature Systolic And Diastolic Provider Name and Address Organization Details Last Updated DateTime 5 185.42 cm 30.9 kg/m2 970945. 31 g 97 % 97 % 87 /min 98.3 [degF] 127/78 mm[Hg] Shanna May [facility] 5 09:57:43 Date Recorded Body height Body mass index (BMI) Body weight Heart rate Oxygen saturation Oxygen saturation in Arterial blood by Pulse oximetry Body temperature Systolic And Diastolic Provider Name and Address Organization Details Last Updated DateTime 5 185.42 cm 30.7 kg/m2 980071. 02 g 91 /min 96 % 96 % 98 [degF] 121/81 mm[Hg] Marguerite Gustafson MA [facility] 5 10:26:40 Social History Question Answer Notes LastModified by Organizat ion Details LastModified Time Tobacco Smoking Status Never Smoker EDUARDA MADRIGAL MD [address], [id number] 05/01/2022 09:50:58 Do You Have An Advance Directive? No Information not available 05/01/2022 Is Blood Transfusion Acceptable In An Emergency? Yes Information not available 05/01/2022 What Type Of Diet Are You Following? REGULAR Information not available 05/01/2022 Which Illicit Or Recreational Drugs Have You Used? Marijuanna Occ Information not available 12/09/2024 Do You Take Precautions To Prevent Distracted Driving? Yes Information not available 05/01/2022 How Often Do You Need To Have Someone Help You When You Read Instructions, Pamphlets, Or Other Written Material From Your Doctor Or Pharmacy? Never Information not available 05/01/2022 Have You Served In The ? No [email or web address] Information not available 07/20/2023 How Many Children Do You Have? 2 Information not available 12/09/2024 Are You Sexually Active? No Uses Protection Information not available 05/01/2022 Are You Passively Exposed To Smoke? No Information not available 05/01/2022 How Many Years Have You Used E-cigarettes Or Vape? 2 Occasional Information not available 12/09/2024 Sex: Unknown Functional Status Question Answer Note LastModified by Organizat ion Details LastModified Time Do you use any illicit or recreational drugs? Yes Information not available 05/01/2022 Do you or have you ever used any other forms of tobacco or nicotine? Yes Information not available 05/01/2022 What is your level of alcohol consumption? Occasional Information not available 05/01/2022 Do you or have you ever used smokeless tobacco? Never used smokeless tobacco Information not available 05/01/2022 Are you currently employed? Yes Information not available 05/01/2022 Are you able to walk independently without assistance or assistive devices? YESWOREST Information not available 05/01/2022 What is your occupation? [employer] department Information not available 05/01/2022 Do you or have you ever used e-cigarettes or vape? Current user of electronic cigarettes Information not available 05/01/2022 What is your [...] virus, quadrivalent, PF 02/03/2017 completed JONAH Santiago [facility] 05/01/2022 09:30:33 Influenza, split virus, quadrivalent, PF 02/13/2020 completed JONAH Santiago [facility] 05/01/2022 09:30:33 COVID-19, mRNA, LNP-S, PF, 100 mcg/0.5mL dose or 50 mcg/0.25mL dose 05/28/2020 completed JONAH Santiago [facility] 05/01/2022 09:30:33 COVID-19, mRNA, LNP-S, PF, 100 mcg/0.5mL dose or 50 mcg/0.25mL dose 04/17/2021 completed JONAH Santiago [facility] 05/01/2022 09:30:33 Influenza, split virus, quadrivalent, PF 02/08/2021 completed JONAH Santiago [facility] 05/01/2022 09:30:33 COVID-19, mRNA, LNP-S, PF, 100 mcg/0.5mL dose or 50 mcg/0.25mL dose 04/30/2020 completed JONAH Santiago [facility] 05/01/2022 09:30:33 Influenza, split virus, quadrivalent, PF 01/26/2023 completed JONAH Rose [facility] 07/20/2023 10:11:45 Influenza, split virus, trivalent, PF 02/01/2024 completed Not Available [facility] 2024 10:18:01 Past Encounters Encounter ID Performer Location Encounter Start Date Encounter Closed Date Diagnosis/Indication Diagnosis SNOMED-CT Code Diagnosis ICD10 Code Diagnosis IMO Codes Diagnosis Note [id number] EDUARDA MADRIGAL MD Main Office [address] [place] [address] 05/01/2022 09:15:29 05/01/2022 10:11:53 Adult health examination 726416975 Z00.00 Health Maintenanc e [place]) Patient was counseled on healthy diet, exercise and nutrition due to BMI 33. B) Screening: Last PSADate: Result: ???Next: after discussion would like to hold on this Last Colonoscop y: start at age 45-65Date: Result: Next: not yet done, ordered C) Vaccines:I nfluenza: 01/2022TdA P: DUEZoster: due at 73OIV02: due at 10GFKS15: due at 14NLV07:PC V15:COVID: 04/30/2020 , 05/28/2020 , 04/17/2021 D) Routine blood work orderedE) Updated patient's history RTC in one year for annual exam or sooner if any acute complaints Patient ne w to provider 4748243987 24891 Z76.89 - pt did not have any previous records- all history obtained by patient Fatigue 95365892 R53.83 Z00.00 Hyperlipidemia 03406314 E78.5 Z00.00 Hepatitis C screening 41 3767436 Z11.59 Screening for malignant neoplasm of colon 016670307 Z12.11 - pt is due for a colonoscop y, ordered Deep venou s thrombosis of lower extremity 969696202 I82.409 - pt was only on medication for one month and has ran out since- will need to continue on eliquis for 3 more months- there is still some swelling on the right leg- sounded like a provoked attack as pt was diagnosed with DVT after an [address] ride Administra tion of diphtheria, pertussis, and tetanus vaccine 471825681 Z23 - pt is due for vaccinatio n Body mass index 30+ - obesity 772583475 Z68.33 - Cut down on (limit) fast [...] Elevated blood-pressure reading without diagnosis of hypertension 649659718 R03.0 - BP today is 135/95- will await second visit for diagnosis of HTN, pt will need to 2 elevated levels Human immunodeficiency virus infection 72980576 B20 - level has remained undetectab le for 12 years- currently on Genoya given by patient's ID specialist Obesity 243771025 E66.9 [id number] EDUARDA MADRIGAL MD Main Office [address] [facility] [address] [facility], [place] [address] 07/29/2022 11:14:19 07/29/2022 11:53:30 Deep venous thrombosis of lower extremity 393818907 I82.409 - pt has almost completed his [...] Elevated blood-pressure reading without diagnosis of hypertension 289983092 R03.0 - BP today is 122/69 under good control Hyperlipidemia 85616220 E78.5 Z00.00 - pt has elevated triglyceri hakan at 509- pt has undergo 3 months of lifestyle modificati ons: has been eating better and has lost weight (about 20 lbs)- ordered repeat lipid panel to check if the levels of triglyceri hakan has improved [id number] EDUARDA MADRIGAL MD Main Office [address] [facility] [place], [place] [address] 07/20/2023 10:03:58 07/20/2023 10:30:22 Deep venous thrombosis of lower extremity 768250388 I82.409 - US doppler done on 08/05/22 still showed the cloth was present however was no longer occluding- c/w eliquis 2.5mg BID- pt would like to see a vascular surgeon more for reassuranc e as he continues to have intermitte nt leg swelling- discussed bleeding risks Hyperlipidemia 26948628 E78.5 Z00.00 - pt has elevated triglyceri hakan at 509- pt has undergo 3 months of lifestyle modificati ons: has been eating better and has lost weight (about 20 lbs)- ordered repeat lipid panel to check if the levels of triglyceri hakan has improved Adult heal th examination 940480383 Z00.00 Health Maintenanc e Kiah) Patient was counseled on healthy diet, exercise and nutrition due to BMI 30.7. B) Screening: Last PSADate: Result: ???Next: will start at 55 Last Colonoscop y: start at age 45-65Date: Result: Next: not yet done, ordered C) Vaccines:I nfluenza: 01/2023TdA P: DUE, orderedZos ter: orderedPCV 13: due at 52ZNHO30: due at 40TUE33:PC V15:COVID: 04/30/2020 , 05/28/2020 , 04/17/2021 D) Routine blood work orderedE) Updated patient's history RTC in one year for annual exam or sooner if any acute complaints Obesity 737483398 E66.9 Body mass index 30+ - obesity 500747964 Z68.33 - Cut down on (limit) fast [...] tion of diphtheria, pertussis, and tetanus vaccine 948202022 Z23 - pt is due for vaccinatio n Fatigue 71260244 R53.83 Z00.00 Human immunodeficiency virus infection 63154538 B20 - level has remained undetectab le for 12 years- currently on Genoya given by patient's ID specialist , will request records Screening for malignant neoplasm of colon 783188523 Z12.11 - pt is due for a colonoscop y, ordered Varicella vaccination 68 877375 Z23 [id number] EDUARDA MADRIGAL MD Main Office [address] [facility] [address] [place] [address] 12/09/2024 10:15:11 12/09/2024 10:48:36 Adult health examination 262933311 Z00.00 Health Maintenanc e Kiah) Patient was counseled on healthy diet, exercise and nutrition due to BMI 30.7. B) Screening: Last PSADate: Result: ???Next: will start at 55 Last Colonoscop y: start at age 45-65Date: Result: Next: not yet done, ordered several times, not completed C) Vaccines:I nfluenza: 02/01/2024T dAP: DUE, ordered, not performed, remindedZo ster: ordered, not performed, remindedPC V20: orderedCOV ID: 04/30/2020 , 05/28/2020 , 04/17/2021 D) Routine blood work orderedE) Updated patient's history RTC in one year for annual exam or sooner if any acute complaints Deep venou s thrombosis of lower extremity 334513452 I82.409 - provoked- US doppler done on 08/05/22 still showed the cloth was present however was no longer occluding- c/w eliquis 2.5mg BID- was seen by vascular surgery on 10/22/2023 -> c/w treatment- discussed bleeding risks Hyperlipidemia 22374364 E78.5 Z00.00 - pt has elevated triglyceri hakan at 509- pt has undergo 3 months of lifestyle modificati ons: has been eating better and has lost weight (about 20 lbs)- ordered repeat lipid panel to check if the levels of triglyceri hakan has improved Human immunodeficiency virus infection 68245531 B20 - level has remained undetectab le for 13 years- currently on Genoya given by patient's ID specialist , will request records Screening for malignant neoplasm of colon 638267661 Z12.11 Body mass index 30+ - obesity 824424507 E66.9 - BMI of 30.7- Cut down on (limit) fast foods, sweets, and processed snack foods.- Limit alcohol intake to no more than 1- 2 drinks a day for men. One drink equals 12 oz of beer, 5 oz of wine, or 1 oz of hard liquor.- Keep a weight loss journal and keep track of the food and portions that you eat.- The exercise that you do- 4 times a week or 150 minutes cumulative of moderate exercise recommende d. Administra tion of pneumococcal vaccine 21052247 Z23 Hydronephrosis 83413872 N13.30 655139 - noted on ultrasound of the scrotum- pt referred to urology and was seen on 11/11 -> for surgery [id number] EDUARDA MADRIGAL MD Main Office [address] [facility] [address] [place] [address] 10/01/2024 09:45:48 10/01/2024 10:34:20 Tremor 86258121 R25.1 74967 - pt has an action tremor, no tremor noted when resting> b/l hands but worse on the right side and on both hands worse in the 4th and 5th digits- no hx of alcoholism - pt molina have a brother with parkisons- ordered CMP, CBC, vitamin b12, thiamine and ceruloplas min- will do MRI to ensure there is no mass causing this tremor- will hold beta nikolai at this time (suspect essential tremor) Swelling of scrotum 2716 66465 N50.89 107266 - believe patient may have a hydrocele- ordered patient an ultrasound for further investigat ion Health Concerns Section Related Observation LastModified by Organization Detai ls LastModified Time None Recorded Concern Status LastModified by Organization Details LastModified Time None Recorded Advance Directives Directive N: Payers Insurance Date Sequence Insurance Name Policy Number Policy Diaz Covered Member ID Diaz Member ID Guarantor Name 12/20/2024 1 [facility] [id number] Estrada Mcqueen [id number] Estrada Mcqueen Notes Date Note Type Note Provider Name and Address Organization Details Recorded Time 3 text/html Generic HPI TemplateReported by Patient Estrada Mcqueen is a 52 year old [...] HIV specnon detectable 12 years Rahel de leon, [facility] [place] 05/02/2022 11:35:12 3 text/html HyperlipidemiaReported by PatientHPIFor type of hyperlipidemia, patient reportshypertriglyceridemia . For duration, patient reportsnew onset. For compliance, patient reportsnoncompliant with diet (breakfast pt will eat a lot of fried foods). For prior tests, patient reportshighest triglyceride level:(509). For complications, patient reportsno coronary artery disease,no peripheral artery disease, andno cardiovascular disease. Estrada Quintanillaiguez is 52 year old M who presented to the for follow-up on his chronic conditions. 1) DVT: pt is currently on eliquis for a provoked DVT. Has not yet completed three months. Goal is to stop medication. Pt continues to have swelling in the leg but no pain. EDUARDA MADRIGAL MD [address] [address], [place], [address], [facility] [place] 07/29/2022 12:20:45 4 text/html Generic HPI TemplateReported by Patient Estrada Mcqueen is a 53 year old [...] cycling (2X a week) EDUARDA MADRIGAL MD [address], [address], [facility] 07/20/2023 11:41:17 5 text/html ROS as noted in the HPI Estrada Mcqueen is a 54 year old F who presents to the clinic for complaints of left sided testicular swelling. Patient mentions that this has been present for 6-8 months. He has not noticed any worsening in size. Presents because his is worried. Pt unsupported underwear for most of the time. No improvement when he wears supported underwear. There is no pain associated. Pt is also complaining of bilateral hand pain. Worse on the right side. Also worse the last two digits (4th and 5th digit). Has been on-going for at least 6 months. Brother was recently diagnosed with Parkinsons. Has not noticed any changes with alcohol. No trouble with writing or holding utensils. Has not dropped anything. EDUARDA MADRIGAL MD [address] [address], [place], [address], [facility] 10/02/2024 07:19:06 5 text/html Generic HPI TemplateReported by Patient Estrada Mcqueen is a 54 year old M who presented to the [...] cycling (2X a week) EDUARDA MADRIGAL MD [address] [address], [place], [address], [facility] 12/09/2024 10:56:26
[2025-03-11 16:24] LABS: Absolute CD3 Count 2384 cells/uL (840-3060); Absolute CD8 Count 1270 cells/uL (180-1170); Percent CD3 Cells 78 % (57-85); Percent CD8 Cells 42 % (12-42)
== END 2025-03-06 15:44 | disposition home or self-care (01) ==
LOC: HO.LAB 15:43
PROVIDERS: PCP Student in an Organized Health Care Education/Training Program; Visit Provider Internal Medicine
DX: B20 Human immunodeficiency virus [HIV] disease (principal)
CPT/HCPCS: 36415; 86359; 86360; 87536

== ENCOUNTER 2025-03-13 15:25 | Outpatient (AMB) | payer OTHER, SELFPAY ==
--- OUTSIDE RECORDS SUMMARY | 2025-03-14 06:02 | XMS_ITS | Data Portability ---
Author Organization [facility], Main Office Address [address] [facility] [address] [place] [address] Care Team Providers Care Vegetable Cook Name Role Phone EDUARDA MADRIGAL Primary Care Provider [facility] Radio Assembler [phone] [facility] INFECTIOUS DISEASE Infectious Disease Assessment No assessment recorded. Plan of Treatment Reminders Order Date Submit Date Provider Last Modified By Organization Details Last Modified Time Details Appointments None recor ded. Lab lipid panel , serum 2024 025 [facility], [address], [facility], [place], [address], 10:45:49 CMP, serum or plasm a 2024 025 [facility]ER [facility] (Centralized Electronic Ordering - All Locations), Patient Can Go To The Location Of Their Choice, 20:05:53 CBC w/ auto diff 2024 025 [facility] (Centralized Electronic Ordering - All Locations), Patient Can Go To The Location Of Their Choice, [id number] 20:05:52 vitam in B12, serum 2024 025 [facility] (Centralized Electronic Ordering - All Locations), Patient Can Go To The Location Of Their Choice, [address] 20:05:54 elliot ine, QN, blood 2024 025 [facility] (Centralized Electronic Ordering - All Locations), Patient Can Go To The Location Of Their Choice, [address] 5 20:05:53 cerul oplas min, serum 2024 025 [facility] (Centralized Electronic Ordering - All Locations), Patient Can Go To The Location Of Their Choice, [address] 5 20:05:55 lipid panel , serum 2023 024 [email or web address] [facility], [address], [address], [place], [address], 4 10:24:38 BMP, serum or plasm a 2023 024 [facility], [address], [address], [place], [address], 4 10:29:16 CBC w/ auto diff 2023 024 [facility], [address], [address], [place], [address], 4 10:29:16 TSH, serum or plasm a 2023 024 [facility], [address], [address], [place], [address], 4 10:29:16 lipid panel , serum 2022 023 [email or web address] [facility], [address], [address], [place], [address], 3 14:06:04 hepat itis C virus Ab, serum 2022 023 [facility], [address], [address], [place], [address], 3 09:51:14 lipid panel , serum 2022 023 [facility], [address], [address], [place], [address], 3 17:45:53 BMP, serum or plasm a 2022 023 [facility], [address], [address], [place], [address], 3 17:45:51 CBC w/ auto diff 2022 023 [facility], [address], [address], [place], [address], 3 16:22:27 TSH, serum or plasm a 2022 023 [facility], [address], [address], [place], [place], [address], 3 17:55:42 Referral vascu lar surge on refer ral - was diagn osed in 2022, clot his impro vemen t, pt just wants some faustino nce 2023 024 MANHEIM [facility], [address], [address], [place], [address], 4 08:19:14 Procedures colon oscop y scree deidre (PROC ) 2024 025 [email or web address] [facility] [place], [address] [facility], [place], [address], 5 13:54:14 colon oscop y scree deidre (PROC ) 2023 024 [email or web address] Not available 4 10:37:26 colon oscop y [...] ensur e cloth disso lved 2022 023 [facility] (Ultrasound), [address] [place] [address], [address], 19:02:39 Medication Orders Eliqu is 2.5 mg table t 2022 023 [facility], [address] [place] [address], [address], 15:43:35 Eliqu is 2.5 mg table t 2022 023 [facility] 3, [address] [place] [address], [address], 11:51:15 Patient TargetsNo targets recorded. Patient Instructions Encounter Date Encounter Id Patient Instructions Last Modified By Organization Details Last Modified Time 05/01/2022 [id number] Colon Cancer Screening [facility] Not available 05/01/2022 10:04:37 07/20/2023 [id number] Colon Cancer Screening [facility] Not available 07/20/2023 10:29:16 medical record request* Not available 07/20/2023 11:44:19 12/09/2024 [id number] Colon Cancer Screening [facility] Not available 12/09/2024 [...] /uL 3.4-10 .8 normal Not Available [facility] ([facility]) [address], [place], [address], 10/10/2024 20:05:52 10/05/19 25 10/04/2024 CBC WITH DIFFE RENTI AL/PL ATELE T RBC 4.51 x10e6 /uL 4.14-5 .80 normal Not Available [facility] ([facility]) [address], [place], [address], 10/10/2024 20:05:52 10/05/19 25 10/04/2024 CBC WITH DIFFE RENTI AL/PL ATELE T hemoglobin 14.2 g/dL 13.0-1 7.7 normal Not Available [facility] ([facility]) [address] [place], [address], 10/10/2024 20:05:52 10/05/19 25 10/04/2024 CBC WITH DIFFE RENTI AL/PL ATELE T hematocrit 43.8 % 37.5-5 1.0 normal Not Available [facility] ([facility]) [address] [place], [address], 10/10/2024 20:05:52 10/05/19 25 10/04/2024 CBC WITH DIFFE RENTI AL/PL ATELE T MCV 97 fL 79-97 normal Not Available [facility] ([facility]) [address] [place], [address], 10/10/2024 20:05:52 10/05/19 25 10/04/2024 CBC WITH DIFFE RENTI AL/PL ATELE T MCH 31.5 pg 26.6-3 3.0 normal Not Available [facility] ([facility]) [address] [place], [address], 10/10/2024 20:05:52 10/05/19 25 10/04/2024 CBC WITH DIFFE RENTI AL/PL ATELE T MCHC 32.4 g/dL 31.5-3 5.7 normal Not Available [facility] ([facility]) [address] [place], [address], 10/10/2024 20:05:52 10/05/19 25 10/04/2024 CBC WITH DIFFE RENTI AL/PL ATELE T RDW 13.0 % 11.6-1 5.4 Not Available [facility] ([facility]) [address], [place], [address], 10/10/2024 20:05:52 10/05/19 25 10/04/2024 CBC WITH DIFFE RENTI AL/PL ATELE T platelets 200 x10e3 /uL 150-45 0 normal Not Available [facility] ([facility]) [address], [place], [address], 10/10/2024 20:05:52 10/05/19 25 10/04/2024 CBC WITH DIFFE RENTI AL/PL ATELE T neutrophils 51 % not estab. normal Not Available [facility] ([facility]) [address], [place], [address], 10/10/2024 20:05:52 10/05/19 25 10/04/2024 CBC WITH DIFFE RENTI AL/PL ATELE T lymphs 40 % not estab. normal Not Available [facility] ([facility]) [address], [place], [address], 10/10/2024 20:05:52 10/05/19 25 10/04/2024 CBC WITH DIFFE RENTI AL/PL ATELE T monocytes 8 % not estab. normal Not Available [facility] ([facility]) [address], [place], [address], 10/10/2024 20:05:52 10/05/19 25 10/04/2024 CBC WITH DIFFE RENTI AL/PL ATELE T eos 1 % not estab. normal Not Available [facility] ([facility]) [address], [place], [address], 10/10/2024 20:05:52 10/05/19 25 10/04/2024 CBC WITH DIFFE RENTI AL/PL ATELE T basos 0 % not estab. normal Not Available [facility] ([facility]) [address], [place], [address], 10/10/2024 20:05:52 10/05/19 25 10/04/2024 CBC WITH DIFFE RENTI AL/PL ATELE T immature cells HAIRSPRING I INSPECTOR Not Available [facility] ([facility]) [address] [place], [address], 10/10/2024 20:05:52 10/05/19 25 10/04/2024 CBC WITH DIFFE RENTI AL/PL ATELE T neutrophils (absolute) 3.2 x10e3 /uL 1.4-7. 0 normal Not Available [facility] ([facility]) [address] [place], [address], 10/10/2024 20:05:52 10/05/19 25 10/04/2024 CBC WITH DIFFE RENTI AL/PL ATELE T lymphs (absolute) 2.5 x10e3 /uL 0.7-3. 1 normal Not Available [facility] ([facility]) [address] [place], [address], 10/10/2024 20:05:52 10/05/19 25 10/04/2024 CBC WITH DIFFE RENTI AL/PL ATELE T monocytes(ab solute) 0.5 x10e3 /uL 0.1-0. 9 normal Not Available [facility] ([facility]) [address] [place], [address], 10/10/2024 20:05:52 10/05/19 25 10/04/2024 CBC WITH DIFFE RENTI AL/PL ATELE T eos (absolute) 0.1 x10e3 /uL 0.0-0. 4 normal Not Available [facility] ([facility]) [address] [place], [address], 10/10/2024 20:05:52 10/05/19 25 10/04/2024 CBC WITH DIFFE RENTI AL/PL ATELE T baso (absolute) 0.0 x10e3 /uL 0.0-0. 2 normal Not Available [facility] ([facility]) [address], [place], [address], 10/10/2024 20:05:52 10/05/19 25 10/04/2024 CBC WITH DIFFE RENTI AL/PL ATELE T immature granulocytes 0 % not estab. Not Available [facility] ([facility]) [address], [place], [address], 10/10/2024 20:05:52 10/05/19 25 10/04/2024 CBC WITH DIFFE RENTI AL/PL ATELE T immature grans (abs) 0.0 x10e3 /uL 0.0-0. 1 Not Available [facility] ([facility]) [address], [place], [address], 10/10/2024 20:05:52 10/05/19 25 10/04/2024 CBC WITH DIFFE RENTI AL/PL ATELE T NRBC HAIRSPRING I INSPECTOR Not Available [facility] ([facility]) [address], [place], [address], 10/10/2024 20:05:52 10/05/19 25 10/04/2024 CBC WITH DIFFE RENTI AL/PL ATELE T hematology comments: HAIRSPRING I INSPECTOR Not Available [facility] ([facility]) [address], [place], [address], 10/10/2024 20:05:52 10/05/19 25 10/04/2024 COMP. METAB OLIC PANEL (14) glucose 76 mg/dL 70-99 normal Not Available [facility] ([facility]) [address], [place], [address], 10/10/2024 20:05:53 10/05/19 25 10/04/2024 COMP. METAB OLIC PANEL (14) BUN 18 mg/dL 6-24 normal Not Available [facility] ([facility]) [address] [place], [address], 10/10/2024 20:05:53 10/05/19 25 10/04/2024 COMP. METAB OLIC PANEL (14) creatinine 1.05 mg/dL 0.76-1 .27 normal Not Available [facility] ([facility]) [address] [place], [address], 10/10/2024 20:05:53 10/05/19 25 10/04/2024 COMP. METAB OLIC PANEL (14) eGFR 84 mL/mi n/1.7 3 >59 normal Not Available [facility] ([facility]) [address], [address], 10/10/2024 20:05:53 10/05/19 25 10/04/2024 COMP. METAB OLIC PANEL (14) BUN/creatini ne ratio 17 9-20 normal Not Available [facility] ([facility]) [address], [place], [address], 10/10/2024 20:05:53 10/05/19 25 10/04/2024 COMP. METAB OLIC PANEL (14) sodium 142 mmol/ L 134-14 4 normal Not Available [facility] ([facility]) [address] [place], [address], 10/10/2024 20:05:53 10/05/19 25 10/04/2024 COMP. METAB OLIC PANEL (14) potassium 4.1 mmol/ L 3.5-5. 2 normal Not Available [facility] ([facility]) [address], [address], 10/10/2024 20:05:53 10/05/19 25 10/04/2024 COMP. METAB OLIC PANEL (14) chloride 104 mmol/ L 96-106 normal Not Available [facility] ([facility]) [address], [place], [address], 10/10/2024 20:05:53 10/05/19 25 10/04/2024 COMP. METAB OLIC PANEL (14) carbon dioxide, total 22 mmol/ L 20-29 normal Not Available [facility] ([facility]) [address], [address], 10/10/2024 20:05:53 10/05/19 25 10/04/2024 COMP. METAB OLIC PANEL (14) calcium 9.2 mg/dL 8.7-10 .2 normal Not Available [facility] ([facility]) [address], [address], 10/10/2024 20:05:53 10/05/19 25 10/04/2024 COMP. METAB OLIC PANEL (14) protein, total 7.2 g/dL 6.0-8. 5 normal Not Available [facility] ([facility]) [address] [place], [address], 10/10/2024 20:05:53 10/05/19 25 10/04/2024 COMP. METAB OLIC PANEL (14) albumin 4.2 g/dL 3.8-4. 9 normal Not Available [facility] ([facility]) [address], [address], 10/10/2024 20:05:53 10/05/19 25 10/04/2024 COMP. METAB OLIC PANEL (14) globulin, total 3.0 g/dL 1.5-4. 5 Not Available [facility] ([facility]) [address] [place], [address], 10/10/2024 20:05:53 10/05/19 25 10/04/2024 COMP. METAB OLIC PANEL (14) bilirubin, total 0.3 mg/dL 0.0-1. 2 normal Not Available [facility] ([facility]) [address] [place], [address], 10/10/2024 20:05:53 10/05/19 25 10/04/2024 COMP. METAB OLIC PANEL (14) alkaline phosphatase 62 IU/L 44-121 normal Not Available [facility] ([facility]) [address], [address], 10/10/2024 20:05:53 10/05/19 25 10/04/2024 COMP. METAB OLIC PANEL (14) AST (SGOT) 27 IU/L 0-40 normal Not Available [facility] ([facility]) [address] [place], [address], 10/10/2024 20:05:53 10/05/19 25 10/04/2024 COMP. METAB OLIC PANEL (14) ALT (SGPT) 24 IU/L 0-44 normal Not Available [facility] ([facility]) [address], [place], [address], 10/10/2024 20:05:53 10/05/19 25 10/10/2024 VITAM IN B1 (THIA MINE) , BLOOD vit. B1, whole blood 133.0 nmol/ L 66.5-2 00.0 Not Available [facility] ([facility]) [address] [place], [address], 10/10/2024 20:05:53 10/05/19 25 10/04/2024 VITAM IN B12 vitamin B12 416 pg/mL 232-12 45 normal Not Available [facility] ([facility]) [address] [place], [address], 10/10/2024 20:05:54 10/05/19 25 10/05/2024 CERUL OPLAS MIN ceruloplasmi n 20.0 mg/dL 16.0-3 1.0 Not Available [facility] ([facility]) [address] [place], [address], 10/10/2024 20:05:55 07/30/19 23 07/29/2022 US, gagan x, vinicio s, lower extre mity, unila teral No observ ation record ed. [facility] [address], [place], [address], 07/30/2022 08:16:38 08/06/19 23 08/05/2022 US, duple [...] patent more inferi ananda in the calf. Service Architect ior tibial veins: The visual ized portio [...] patent femora l collat eral vein. WSN: [id number] Orderi ng Physic alix: Carlos Cortez ie Dictat ed By: Lor Eckert MD Dictat ed Date/T jesús: 10:59 a Review ed By: Lor Eckert MD Signed By: Lor Eckert MD Signed Date/T jesús: 10:59 am Transc ribed By: CSB Transc ribed Date/T jesús: 10:52 am Patien t Class: Outpat ient [facility] (Outpt Imaging) [address] , [place], [address], 08/07/2022 13:09:18 07/27/19 24 07/24/2023 US, duple x, venou s, lower extre mity, unila teral No observ ation record ed. [place] [id number] [facility] [address] [address], [place], [address], 07/27/2023 12:02:29 10/23/19 24 10/22/2023 US, duple x, venou s, lower extre mity No observ ation record ed. [place] [id number] [facility] [address] [address], [place], [address], 10/24/2023 08:59:08 10/13/19 25 10/11/2024 MRI, brain , w/o contr ast No observ ation record ed. [address] [facility] [address], [place], [address], 10/27/2024 12:56:21 10/18/19 25 10/14/2024 US, scrot [...] steven with small amount of layeri ng unpaid intern al debris . No signif icant [...] 7.9 x 10.1 cm with low-le reginald unpaid intern al echoes and periph eral displa [...] I agree with this report . WSN: [id number] Orderi ng Physic alix: Carlos Cortez Dictat ed By: Sheri martinez DO Tammy Dictat ed Date/T jesús: 7:56 am Review ed By: Willy martinez MD, Lc Signed By: Lc Petersen MD Signed Date/T jesús: 8:01 am Transc ribed By: PATRIC Transc ribed Date/T jesús: 7:48 am Patien t Class: Outpat ient [facility] (Outpt Imaging) [address] [place], [address], 10/24/2024 11:56:11 Result Notes None recorded. Problems Name Problem SNOMED Code Status Onset Date Resolution Date Notes Provider Name and Address Organization Details Recorded Time Deep venous thrombosis of lower extremity 776042455 Active 2022 occured in 02/2022 EDUARDA MADRIGAL MD [address], [place], [address], [facility] 3 09:46:30 Human immunodefi ciency virus infection 64808428 Active 2022 follows with ID (levels undetectab le for 12 years) EDUARDA MADRIGAL MD [address], [place], [address], [facility] 3 11:11:02 Obesity 965579680 Active 2022 Rahel de leon, [facility] 3 11:34:06 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 Medical [...] Updated DateTime 3 185.42 cm 33 kg/m2 032979. 09 g 75 /min 99 % 99 % 98.2 [degF] 135/79 mm[Hg] Kimberli Asif MA [facility] 3 09:38:16 Date Recorded Body height Body mass index (BMI) Body weight Oxygen saturation Oxygen saturation in Arterial blood by Pulse oximetry Heart rate Body temperature Systolic And Diastolic Provider Name and Address Organization Details Last Updated DateTime 4 185.42 cm 30.7 kg/m2 592632. 53 g 97 % 97 % 82 /min 97.8 [degF] 116/75 mm[Hg] Shanna May MA [facility] 4 10:11:27 Date Recorded Body height Body mass index (BMI) Body weight Heart rate Oxygen saturation Oxygen saturation in Arterial blood by Pulse oximetry Body temperature Systolic And Diastolic Provider Name and Address Organization Details Last Updated DateTime 3 185.42 cm 30.3 kg/m2 282601. 25 g 95 /min 96 % 96 % 98.1 [degF] 122/69 mm[Hg] Fortunato Bass [facility] 3 11:33:08 Date Recorded Body height Body mass index (BMI) Body weight Oxygen saturation Oxygen saturation in Arterial blood by Pulse oximetry Heart rate Body temperature Systolic And Diastolic Provider Name and Address Organization Details Last Updated DateTime 5 185.42 cm 30.9 kg/m2 809204. 31 g 97 % 97 % 87 /min 98.3 [degF] 127/78 mm[Hg] Shanna May MA [facility] 5 09:57:43 Date Recorded Body height Body mass index (BMI) Body weight Heart rate Oxygen saturation Oxygen saturation in Arterial blood by Pulse oximetry Body temperature Systolic And Diastolic Provider Name and Address Organization Details Last Updated DateTime 5 185.42 cm 30.7 kg/m2 064685. 02 g 91 /min 96 % 96 % 98 [degF] 121/81 mm[Hg] Marguerite Gustafson MA [facility] 5 10:26:40 Social History Question Answer Notes LastModified by Organizat ion Details LastModified Time Tobacco Smoking Status Never Smoker EDUARDA MADRIGAL MD [address], [address]22 09:50:58 Do You Have [...] Have You Served In The ? No [email or web address] Information not available 07/20/2023 How Many Children [...] not available 05/01/2022 What is your occupation? [facility] [employer] department Information not available 05/01/2022 Do you [...] completed JONAH Santiago [facility] 05/01/2022 09:30:33 Influenza, split virus, quadrivalent, PF 02/13/2020 completed JONAH Santiago [facility] 05/01/2022 09:30:33 COVID-19, mRNA, LNP-S, PF, 100 mcg/0.5mL dose or 50 mcg/0.25mL dose 05/28/2020 completed JONAH Santiago [facility] 05/01/2022 09:30:33 COVID-19, mRNA, LNP-S, PF, 100 mcg/0.5mL dose or 50 mcg/0.25mL dose 04/17/2021 completed JONAH Santiago [facility] 05/01/2022 09:30:33 Influenza, split virus, quadrivalent, PF 02/08/2021 completed JONAH Santiago [facility] 05/01/2022 09:30:33 COVID-19, mRNA, LNP-S, PF, 100 mcg/0.5mL dose or 50 mcg/0.25mL dose 04/30/2020 completed JONAH Santiago [facility] 05/01/2022 09:30:33 Influenza, split virus, quadrivalent, PF 01/26/2023 completed JONAH Rose [facility] 07/20/2023 10:11:45 Influenza, split virus, trivalent, PF 02/01/2024 completed Not Available [facility] 2024 10:18:01 Past Encounters Encounter ID Performer Location Encounter Start Date Encounter Closed Date Diagnosis/Indication Diagnosis SNOMED-CT Code Diagnosis ICD10 Code Diagnosis IMO Codes Diagnosis Note [id number] EDUARDA MADRIGAL MD Main Office [address] [place] [address] 05/01/2022 09:15:29 05/01/2022 10:11:53 Adult health examination 301084888 Z00.00 Health Maintenanc e [place]iah) Patient was counseled on healthy diet, exercise and nutrition due to BMI 33. B) Screening: Last PSADate: Result: ???Next: after discussion would like to hold on this Last Colonoscop y: start at age 45-65Date: Result: Next: not yet done, ordered C) Vaccines:I nfluenza: 01/2022TdA P: DUEZoster: due at 27RNQ08: due at 46ZOIJ22: due at 88UWA77:PC V15:COVID: 04/30/2020 , 05/28/2020 , 04/17/2021 D) Routine blood work orderedE) Updated patient's history RTC in one year for annual exam or sooner if any acute complaints Patient ne w to provider [id number] 16814 Z76.89 - pt did not have any previous records- all history obtained by patient Fatigue 95474554 R53.83 Z00.00 Hyperlipidemia 44452323 E78.5 Z00.00 Hepatitis C screening 41 3926201 Z11.59 Screening for malignant neoplasm of colon 905582657 Z12.11 - pt is due for a colonoscop y, ordered Deep venou s thrombosis of lower extremity 459413473 I82.409 - pt was only on medication for one month and has ran out since- will need to continue on eliquis for 3 more months- there is still some swelling on the right leg- sounded like a provoked attack as pt was diagnosed with DVT after an [address] ride Administra tion of diphtheria, pertussis, and tetanus vaccine 555604770 Z23 - pt is due for vaccinatio n Body mass index 30+ - obesity 164489267 Z68.33 - Cut down on (limit) fast [...] Elevated blood-pressure reading without diagnosis of hypertension 669695022 R03.0 - BP today is 135/95- will await second visit for diagnosis of HTN, pt will need to 2 elevated levels Human immunodeficiency virus infection 81520669 B20 - level has remained undetectab le for 12 years- currently on Genoya given by patient's ID specialist Obesity 926371915 E66.9 [id number] EDUARDA MADRIGAL MD Main Office [address] [facility] [address] [facility], [place] [address] 07/29/2022 11:14:19 07/29/2022 11:53:30 Deep venous thrombosis of lower extremity 935128384 I82.409 - pt has almost completed his [...] Elevated blood-pressure reading without diagnosis of hypertension 449479618 R03.0 - BP today is 122/69 under good control Hyperlipidemia 73529706 E78.5 Z00.00 - pt has elevated triglyceri hakan at 509- pt has undergo 3 months of lifestyle modificati ons: has been eating better and has lost weight (about 20 lbs)- ordered repeat lipid panel to check if the levels of triglyceri hakan has improved [id number] EDUARDA MADRIGAL MD Main Office [address] [facility] [place], [place] [address] 07/20/2023 10:03:58 07/20/2023 10:30:22 Deep venous thrombosis of lower extremity 290146797 I82.409 - US doppler done on 08/05/22 still showed the cloth was present however was no longer occluding- c/w eliquis 2.5mg BID- pt would like to see a vascular surgeon more for reassuranc e as he continues to have intermitte nt leg swelling- discussed bleeding risks Hyperlipidemia 48511990 E78.5 Z00.00 - pt has elevated triglyceri ahkan at 509- pt has undergo 3 months of lifestyle modificati ons: has been eating better and has lost weight (about 20 lbs)- ordered repeat lipid panel to check if the levels of triglyceri hakan has improved Adult heal th examination 700512454 Z00.00 Health Maintenanc e Kiah) Patient was counseled on healthy diet, exercise and nutrition due to BMI 30.7. B) Screening: Last PSADate: Result: ???Next: will start at 55 Last Colonoscop y: start at age 45-65Date: Result: Next: not yet done, ordered C) Vaccines:I nfluenza: 01/2023TdA P: DUE, orderedZos ter: orderedPCV 13: due at 03JFHE62: due at 90OUG99:PC V15:COVID: 04/30/2020 , 05/28/2020 , 04/17/2021 D) Routine blood work orderedE) Updated patient's history RTC in one year for annual exam or sooner if any acute complaints Obesity 056342934 E66.9 Body mass index 30+ - obesity 866626657 Z68.33 - Cut down on (limit) fast [...] tion of diphtheria, pertussis, and tetanus vaccine 528004304 Z23 - pt is due for vaccinatio n Fatigue 05972676 R53.83 Z00.00 Human immunodeficiency virus infection 81453547 B20 - level has remained undetectab le for 12 years- currently on Genoya given by patient's ID specialist , will request records Screening for malignant neoplasm of colon 340164914 Z12.11 - pt is due for a colonoscop y, ordered Varicella vaccination 68 742090 Z23 [id number] EDUARDA MADRIGAL MD Main Office [address] [place] [address] 12/09/2024 10:15:11 12/09/2024 10:48:36 Adult health examination 765273125 Z00.00 Health Maintenanc e Kiah) Patient was [...] Deep venou s thrombosis of lower extremity [id number] I82.409 - provoked- US doppler done on 08/05/22 still showed the cloth was present however was no longer occluding- c/w eliquis 2.5mg BID- was seen by vascular surgery on 10/22/2023 -> c/w treatment- discussed bleeding risks Hyperlipidemia 36879086 E78.5 Z00.00 - pt has elevated triglyceri hakan at 509- pt has undergo 3 months of lifestyle modificati ons: has been eating better and has lost weight (about 20 lbs)- ordered repeat lipid panel to check if the levels of triglyceri hakan has improved Human immunodeficiency virus infection 78980113 B20 - level has remained undetectab le for 13 years- currently on Genoya given by patient's ID specialist , will request records Screening for malignant neoplasm of colon 099608931 Z12.11 Body mass index 30+ - obesity 508531356 E66.9 - BMI of 30.7- Cut down [...] recommende d. Administra tion of pneumococcal vaccine 95847056 Z23 Hydronephrosis 75281358 N13.30 [id number] - noted on ultrasound of the scrotum- pt referred to urology and was seen on 11/11 -> for surgery [id number] EDUARDA MADRIGAL MD Main Office [address] [facility] [place] [address] 10/01/2024 09:45:48 10/01/2024 10:34:20 Tremor 06493220 R25.1 39465 - pt has an action tremor, no [...] (suspect essential tremor) Swelling of scrotum 2716 19896 N50.89 733900 - believe patient may have a hydrocele- ordered patient an ultrasound for further investigat ion Health Concerns Section Related Observation LastModified by Organization Detai ls LastModified Time None Recorded Concern Status LastModified by Organization Details LastModified Time None Recorded Advance Directives Directive N: Payers Insurance Date Sequence Insurance Name Policy Number Policy Diaz Covered Member ID Diaz Member ID Guarantor Name 12/20/2024 1 [facility] [id number] Estrada Mcqueen [id number] Estrada Mcqueen Notes Date Note Type Note [...] specnon detectable 12 years Rahel de leon, [facility] [place] 05/02/2022 11:35:12 3 text/html HyperlipidemiaReported by [...] leg but no pain. EDUARDA MADRIGAL MD [address] [address], [place], [address], [facility] [place] 07/29/2022 12:20:45 4 text/html Generic HPI [...] cycling (2X a week) EDUARDA MADRIGAL MD [address], [address], [facility] [place] 07/20/2023 11:41:17 5 text/html ROS as noted [...] Has not dropped anything. EDUARDA MADRIGAL MD [address] [address], [place], [address], [facility] [place] 10/02/2024 07:19:06 5 text/html Generic HPI TemplateReported [...] (2X a week) EDUARDA MADRIGAL MD [address] [address], [place], [address], [facility] [place] 12/09/2024 10:56:26
--- NOTE | 2025-03-21 23:59 | A.OFFVISCC_ITS ---
Intake Visit Reasons: 6 month HIV labs Allergies No Known Allergies Allergy (Verified 08/31/24 13:03) HPI HPI 6 month HIV labs: Details: His viral load is undetectable in July and he is getting new viral load and CD4 count. He takes Genvoya and wishes to remain on it. He has no side effects. Review of Systems Const All systems reviewed & are unremarkable except as noted in HPI and below Physical Exam Const General: cooperative HEENT Head: Yes normal to inspection Face and sinus: Yes normal facial exam Mouth: Normal oral and palatal mucosa present Teeth and gingiva: dentition normal Eyes General: appearance normal, both eyes and all related structures Pupils: Equal, round and reactive pupils present Resp Effort & Inspection: normal respiratory effort Cardio Rate: regular rate Rhythm: regular rhythm GI Palpation (GI): Soft to palpation and nontender General: Yes no CVA tenderness Back/Spine/Pelvis Back: no CVA tenderness Skin General skin exam: no rashes or lesions noted Neuro General: moves all extremities Cranial nerves: Yes Equal, round and reactive pupils present Extrem General: Yes normal to inspection Psych Appearance: grossly normal [facility] Medical History Hypovitaminosis D Epigastric pain HIV (human immunodeficiency virus infection) Family History Mother Diabetes Maternal Grandmother Diabetes Social History Alcohol intake: current Patient Tobacco Use Status: Never used Tobacco Assessment & Plan Assessment & Plan (1) HIV (human immunodeficiency virus infection): Comment: He has been doing well. He has viral load undetectable and CD4 count approprate Would continue Genvoya. Check CD4 count and viral load in six months. Consider statin as HIV is independent risk factor for CAD. Check cholesterol. He will consider rectal Pap in future. He is not interested today. See in six months Code(s): B20 - Human immunodeficiency virus [HIV] disease Category: Medical Plan: na Orders: Orders HIV-1 RNA QN PCR Expanded 6 Months B20 - Human immunodeficiency virus [HIV] disease Lymphocyte Subset Panel 3 6 Months B20 - Human immunodeficiency virus [HIV] disease Medications: Refilled mydhthr-zkj-nmnwy-tenof alafen [phone] mg (Genvoya) must administer with a meal/food 1 tab PO DAILY 30 tabs 5RF 30 days
== END 2025-03-13 16:11 | disposition home or self-care (01) ==
LOC: HO.HID 15:25
PROVIDERS: PCP Student in an Organized Health Care Education/Training Program; Visit Provider Internal Medicine
DX: B20 Human immunodeficiency virus [HIV] disease (principal)
CPT/HCPCS: 99214